=== PATIENT | male | born 1945 | race Hispanic/Latino ===

== ENCOUNTER 2016-05-17 17:43 | Inpatient (IN) | payer MEDICARE ==
[2016-05-17 23:08] VITALS: BMI 35.2
--- NOTE | 2016-05-17 23:54 | CP.PCM.HP ---
History of Present Illness - History of Present Illness History of Present Illness: PCP: Bre Long MD Neurologist: Dr Winston Chief Complaint: CVA Transferred for Acute Rehab HPI: The Hx is obtained from the Medical records reviewed. This is a 70 years old male with hx of DM II; Hepatitis C, who was admitted at the [facility] on 05/10/16 with diagnosis of Left subacute CVA and bilateral lower lobe cavitary lesions of the lung. he is transferred to the [facility] for continued management and Rehabilitation. There was hx of brain Neoplasm which was not visualized on the CT brain nor the MRI of the Brain, so his prior Decadron treatment was discontinued. For the lung cavitary mass , the patient was started on Antibiotics empirically to continue for 4 days more to 05/21/16 for possibly infectious origin, and to consider CT guided Biopsy after treatment if no resolution. PMH: Hepatitis C; DM II; Obesity; HTN?, CVA left basal ganglia; Brain tumor resolved with no significant intervention PSH: No surgical Hx SH; Quit Smoking 2 months; Drank Alcohol Heavily in the past; Live with FH; unknown Family Hx Allergies: NKDA Present on Admission - Present on Admission Any Indicators Present on Admission: No History of DVT/PE: No History of Uncontrolled Diabetes: No Urinary Catheter: No Decubitus Ulcer Present: No Review of Systems - Constitutional Constitutional: absent: Anorexia, Chills, Fatigue, Fever, Headache - EENT Eyes: absent: Diplopia, Floaters, Photophobia, Requires Corrective Lenses, Sees Flashes Ears: absent: Decreased Hearing, Ear Discharge, Ear Pain, Tinnitus Nose/Mouth/Throat: absent: Epistaxis, Nasal Congestion, Nasal Discharge, Sinus Pain, Sinus Pressure, Sore Throat - Cardiovascular Cardiovascular: absent: Chest Pain, Dyspnea, Edema, Lightheadedness, Palpitations - Respiratory Respiratory: Cough. absent: Dyspnea, Wheezing, Stridor, Chest Congestion - Gastrointestinal Gastrointestinal: absent: Abdominal Pain, Constipation, Cramping, Diarrhea, Nausea, Vomiting - Genitourinary Genitourinary: absent: Dysuria, Flank Pain, Urinary Frequency, Freq UTI - Musculoskeletal Musculoskeletal: Muscle Weakness. absent: Arthralgias, Muscle Cramps, Myalgias Additional comments: Unsteady gait. - Integumentary Integumentary: absent: Pruritus, Rash, Striae, Swelling Additional comments: stage II ulcer at right buttock - Neurological Neurological: Abnormal Gait, Focal Weakness, Memory Loss, Weakness. absent: Dizziness, Headaches - Psychiatric Psychiatric: absent: Anxiety, Confusion, Depression, Panic Attacks - Endocrine Endocrine: absent: Palpitations, Polydipsia, Polyphagia, Polyuria - Hematologic/Lymphatic Hematologic: absent: Easy Bleeding, Easy Bruising Past Patient History - Past Medical History & Family History Past Medical History?: Yes - Past Social History Smoking Status: Current Some Days Smoker Chewing Tobacco Use: No Cigar Use: No Alcohol: > 2 Drinks/Day Drugs: Denies Home Situation {Lives}: With Family - CARDIAC Hx Cardiac Disorders: No - PULMONARY Hx Respiratory Disorders: No - NEUROLOGICAL Hx Neurological Disorder: Yes (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) HX Cerebrovascular Accident: Yes - HEENT Hx HEENT Problems: No - RENAL Hx Chronic Kidney Disease: No - ENDOCRINE/METABOLIC Hx Diabetes Mellitus Type 2: Yes - HEMATOLOGICAL/ONCOLOGICAL Hx Blood Disorders: Yes Hx Hepatitis C: Yes - INTEGUMENTARY Hx Dermatological Problems: No - MUSCULOSKELETAL/RHEUMATOLOGICAL Hx Musculoskeletal Disorders: Yes Hx Falls: Yes (FREQUENT FALLING) Hx Unsteady Gait: Yes - GASTROINTESTINAL Hx Gastrointestinal Disorders: No - GENITOURINARY/GYNECOLOGICAL Hx Genitourinary Disorders: No - PSYCHIATRIC Hx Psychophysiologic Disorder: Yes (SMOKES CIGARETTES PPD,H/O DRINKING BEER DAILY) Hx Substance Use: No - SURGICAL HISTORY Hx Surgeries: No - ANESTHESIA Hx Anesthesia: No Meds Allergies/Adverse Reactions: Allergies Allergy/AdvReac Type Severity Reaction Status Date / Time No Known Allergies Allergy Verified 05/17/16 23:09 Physical Exam - Constitutional Appears: No Acute Distress - Head Exam Head Exam: ATRAUMATIC, NORMAL INSPECTION, NORMOCEPHALIC - Eye Exam Eye Exam: EOMI, Normal appearance Pupil Exam: NORMAL ACCOMODATION, PERRL - ENT Exam ENT Exam: Mucous Membranes Moist, Normal Exam, Normal External Ear Exam, Normal Oropharynx - Neck Exam Neck exam: Positive for: Full Rom, Normal Inspection. Negative for: Lymphadenopathy, Tenderness - Respiratory Exam Respiratory Exam: Rhonchi. absent: Chest Wall Tenderness Additional comments: transmitted breath sounds to both lungs. - Cardiovascular Exam Cardiovascular Exam: REGULAR RHYTHM, RRR, +S1, +S2. absent: Gallop, JVD - GI/Abdominal Exam GI & Abdominal Exam: Normal Bowel Sounds, Soft Additional comments: Obesd abdomen, Nontender, +ve bowel sounds. - Rectal Exam Rectal Exam: Deferred - Extremities Exam Extremities exam: Positive for: full ROM, normal inspection. Negative for: joint swelling, pedal edema, tenderness - Back Exam Back exam: NORMAL INSPECTION. absent: CVA tenderness (L), CVA tenderness (R) - Neurological Exam Neurological exam: Alert, CN II-XII Intact, Oriented x3, Reflexes Normal - Psychiatric Exam Psychiatric exam: Normal Affect, Normal Mood - Skin Skin Exam: Dry, Intact, Normal Color, Warm Results - EKG Data EKG comments: 05/10/16 Sinus tachycardia 103/min - Imaging and Cardiology CT scan - head 05/10/16 Status: Pending, Report reviewed by me Additional comment: Subacute vs old infarct left basal gangila extending to the left rosales radiata and left centrum semiovale. No Hemorrhage. MRI - head 05/10/16 Status: Report reviewed by me Additional comment: Left Sided Subacute infarct in basal ganglia and adjacent rosales radiata. CT Abdomen/ Pelvis 05/12/16 Status: Report reviewed by me Additional comment: Bilateral lower lobe cavitary lesions. RLL atelectasis or infiltrate. Borderline hypertrophic Prostate containing calcification. CT scan - chest 05/11/16 Status: Report reviewed by me Additional comment: Bilateral cavitary masses. Assessment & Plan - Assessment and Plan (Free Text) Assessment: #. Left sided Subacute CVA in basal ganglia #. Bibasal Cavitary masses #. HCAP #. DM II #. Hepatitis C #. Obesity Plan: 70 years old male with hx of DM II; Hepatitis C, who was admitted at the [facility] on 05/10/16 with diagnosis of Left subacute CVA and bilateral lower lobe cavitary lesions of the lung. He is transferred to the [facility] for continued management and Rehabilitation. There was hx of brain Neoplasm which was not visualized on the CT brain nor the MRI of the Brain, so his prior Decadron treatment was discontinued. For the lung cavitary mass , the patient was started on Antibiotics empirically to continue for 4 days more to 05/21/16 for possibly infectious origin, and to consider CT guided Biopsy after treatment if no resolution. #. Left sided Subacute CVA in basal ganglia - Consult Dr Lema Applique Cutter - consult Dr Winston neurologist - Lipitor/ ASA - PT/OT #. Bibasal Cavitary masses #. HCAP Consult Dr Lopes ID A&P as per ID hCarles Delarosa MD of [facility] - Bilateral small cavitary lesions in the lower lobes of both lungs, R/O septic emboli R/O endocarditis, R/O malignancy; consider healthcare-associated pneumonia (with associated bronchiectasis on the right lower lobe); also need to rule out Sarcoidosis, fungal infection - to continue Vancomycin, Cefepime and Zithromax (day 6 of 10); blood cx -ve; echo shows no vegetations; CRP is elevated consider CT-guided biopsy of the lesions after treatment as per ID of [facility] Follow up ANCA and CARLITA levels; since beta glucan levels are elevated, continue Mycamine (day 2) pending galactomannan levels; if galactomannan levels are negative, change to PO Diflucan as per ID Dr Martinez of [facility] #. DM II - Diabetic diet - Metformin 500mg BID with meals - Regular Insulin Sliding scale according to Accucheck - HbA1c 7.5 on 05/10/16 #. Hepatitis C - Follow with PCP outpatient #. Obesity - kashia on diet and exercise #. Stress ulcer Prophylaxis with Pepcid #. DVT prophylaxis with Lovenox #. Code Status : Full - Date & Time Date: 05/17/16 Time: 23:53
[2016-05-18] MEDS: Cefepime 1 GM in Sodium Chloride 0.9% 100 ML IVPB SCH ×2 (04:59→17:12)
[2016-05-18] MEDS: Azithromycin 500 MG in Sodium Chloride 0.9% 250 ML IVPB SCH (06:26)
[2016-05-18] MEDS: Insulin Regular 100 units/ml SC SCH ×4 (07:13→21:29)
[2016-05-18] MEDS: Albuterol-Ipratrop 3 mg / 0.5 (3 ml) UD INH SCH ×4 (08:01→19:43)
[2016-05-18 08:21] LABS: BASO % 0.2 % (0.0-2.0); EOS % 0.7 % (0.0-4.0); HEMATOCRIT 32.3 % (35.0-51.0); LYMPH # 0.6 K/uL (1.0-4.3); LYMPH % 13.5 % (20.0-40.0); MEAN CELL VOLUME 91.3 fl (80.0-94.0); MEAN PLATELET VOLUME 8.7 fl (7.2-11.7); MONO # 0.2 K/uL (0.0-0.8); MONO % 3.2 % (0.0-10.0); NEUT # 3.9 K/uL (1.8-7.0); NEUT % 82.4 % (50.0-75.0); NRBC % 0.2 % (0.0-0.0); RED CELL DISTRIBUTION WIDTH 13.4 % (11.5-14.5); WHITE BLOOD COUNT 4.7 K/uL (4.8-10.8)
[2016-05-18 08:27] LABS: ALB/GLOB RATIO 0.9 (1.0-2.1); ALKALINE PHOSPHATASE 85 U/L (38-126); ALT/SGPT 49 U/L (21-72); AST/SGOT 32 U/L (17-59); BILIRUBIN,TOTAL 0.6 mg/dl (0.2-1.3); BLOOD UREA NITROGEN 13 mg/dl (9-20); CALCIUM 8.1 mg/dL (8.4-10.2); CARBON DIOXIDE 36 mmol/L (22-30); CHLORIDE 97 mmol/L (98-107); GFR AFRICAN-AMERICAN > 60; GLUCOSE,RANDOM 110 mg/dL (75-110); POTASSIUM 3.4 MMOL/L (3.6-5.0); SODIUM 140 mmol/l (132-148); TOTAL PROTEIN 5.4 G/DL (6.3-8.2)
[2016-05-18] MEDS: Pantoprazole 40 mg EC Tab PO SCH (08:27)
[2016-05-18] MEDS: Enoxaparin 40 mg Syringe SC SCH (12:03)
[2016-05-18] MEDS: Micafungin 100 MG in Sodium Chloride 0.9% 100 ML IVPB SCH (12:07)
--- NOTE | 2016-05-18 15:32 | CP.PCM.CON ---
History of Present Illness - History of Present Illness History of Present Illness: Infectious Disease Consultation Note- asked to see this patient at the request of the [facility] ( was not called about this consult on the phone, happen to see the request on the [facility]). HPI- Pt. is a 70 year old male with pmh of DM II, Hep C , ? brain tumor which apparently is resolved was on decadron in the past as per hospitalist's note, who was apparently admitted to [facility] on 05/10/2016 with diagnosis of left subacute CVA and was also found to have b/l lower lobe cavitary lesions of the lung. As per med noted from [facility] pt. was being f/u by Infectious Disease doctors there ( Manjit Duarte Dr ) for the b/l ower lobe lung lesions and they thought most likely it is pneumonia and they started pt. on cefepime, vanco and zithromax and they were ruling him out for opportunistic infections such as aspergillosis as well, low suspicion of TB based on the ID noted from the other hospital as pt. never had been exposed to TB and not from endemic region and lower lobes and they had advised to continue empiric IV abx till 05/[address] guided bx of the lung lesions if no resolution after abx completion. Pt. was transferred to [facility] for PT and rehab and i'm asked to help with antibiotic management. Pt. currently in PT and in NAD. PMH: Hepatitis C; DM II; Obesity; HTN?, CVA left basal ganglia; Brain tumor resolved with no significant intervention PSH: No surgical Hx SH; Quit Smoking 2 months; Drank Alcohol Heavily in the past; Live with past h/o IVDu Allergies: NKDA Review of Systems - Review of Systems Review of Systems: ROS- denies any fever, denies any chills, denies any SANTANA, denies any nausea or vomiting, denies any sob, no cough, denies any sob, denies any chest pain, denies any abd. pain, denies any dysurea, denies any diarrhea denies any recent travel denies any exposure to TB denies any weight loss, denies any night sweats 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) HX Cerebrovascular Accident: Yes - HEENT Hx HEENT Problems: No - RENAL Hx Chronic Kidney Disease: No - ENDOCRINE/METABOLIC Hx Diabetes Mellitus Type 2: Yes - HEMATOLOGICAL/ONCOLOGICAL Hx Blood Disorders: Yes Hx Hepatitis C: Yes - INTEGUMENTARY Hx Dermatological Problems: No - MUSCULOSKELETAL/RHEUMATOLOGICAL Hx Musculoskeletal Disorders: Yes Hx Falls: Yes (FREQUENT FALLING) Hx Unsteady Gait: Yes - GASTROINTESTINAL Hx Gastrointestinal Disorders: No - GENITOURINARY/GYNECOLOGICAL Hx Genitourinary Disorders: No - PSYCHIATRIC Hx Psychophysiologic Disorder: Yes (SMOKES CIGARETTES PPD,H/O DRINKING BEER DAILY) Hx Substance Use: No - SURGICAL HISTORY Hx Surgeries: No - ANESTHESIA Hx Anesthesia: No Meds Allergies/Adverse Reactions: Allergies Allergy/AdvReac Type Severity Reaction Status Date / Time No Known Allergies Allergy Verified 05/17/16 23:09 - Medications Medications: Current Medications Albuterol/Ipratropium (Duoneb 3 Mg/0.5 Mg (3 Ml) Ud) 3 ml INH RQID [facility] Last Admin: 05/18/16 11:30 Dose: Not Given Aspirin (Ecotrin) 81 mg PO DAILY [facility] Last Admin: 05/18/16 08:27 Dose: 81 mg Atorvastatin Calcium (Lipitor) 20 mg PO [facility] Docusate Sodium (Colace) 100 mg PO BID [facility] Last Admin: 05/18/16 08:27 Dose: 100 mg Enoxaparin Sodium (Lovenox) 40 mg SC DAILY [facility] PRN Reason: Protocol Last Admin: 05/18/16 12:03 Dose: 40 mg Furosemide (Lasix) 40 mg PO DAILY [facility] Last Admin: 05/18/16 08:32 Dose: 40 mg Cefepime HCl 1 gm/ Sodium (Chloride) 100 mls @ 100 mls/hr IVPB Q12H [facility] Last Admin: 05/18/16 04:59 Dose: 100 mls/hr Azithromycin 500 mg/ Sodium (Chloride) 250 mls @ 250 mls/hr IVPB DAILY@0600 [facility] Last Admin: 05/18/16 06:26 Dose: 250 mls/hr Vancomycin HCl 1 gm/ Sodium (Chloride) 250 mls @ 166.667 mls/hr IVPB Q12H [facility] Last Admin: 05/18/16 02:17 Dose: 166.667 mls/hr Micafungin Sodium 100 mg/ (Sodium Chloride) 100 mls @ 100 mls/hr IVPB DAILY [facility] Last Admin: 05/18/16 12:07 Dose: 100 mls/hr Insulin Human Regular (Humulin R) 0 units SC ACHS [facility] PRN Reason: Protocol Last Admin: 05/18/16 12:14 Dose: Not Given Metformin HCl (Glucophage) 500 mg PO BIDWM [facility] Last Admin: 05/18/16 08:27 Dose: 500 mg Pantoprazole Sodium (Protonix Ec Tab) 40 mg PO DAILY [facility] Last Admin: 05/18/16 08:27 Dose: 40 mg Physical Exam - Constitutional Appears: Non-toxic, No Acute Distress - Head Exam Head Exam: ATRAUMATIC - Eye Exam Eye Exam: EOMI, PERRL - ENT Exam ENT Exam: Normal Oropharynx - Neck Exam Neck exam: Positive for: Full Rom - Respiratory Exam Respiratory Exam: NORMAL BREATHING PATTERN Additional comments: no wheezing slightly reduced breath sounds at the bases no rhonchi - Cardiovascular Exam Cardiovascular Exam: RRR, +S1, +S2 - GI/Abdominal Exam GI & Abdominal Exam: Normal Bowel Sounds, Soft Additional comments: NT, ND - Extremities Exam Extremities exam: Positive for: normal inspection - Neurological Exam Neurological exam: Alert, Oriented x3 Results - Vital Signs Recent Vital Signs: Last Vital Signs Temp 98.3 F 05/18/16 08:40 Pulse 95 H 05/18/16 08:40 Resp 23 05/18/16 08:40 BP 113/68 05/18/16 08:40 Pulse Ox 98 05/18/16 08:40 - Labs Result Diagrams: 05/19/16 07:27 05/19/16 07:27 Labs: Laboratory Results - last 24 hr 05/18/16 05/18/16 05/18/16 05:33 08:04 11:52 WBC 4.7 L RBC 3.54 L Hgb 11.0 L Hct 32.3 L MCV 91.3 MCH 31.0 MCHC 34.0 RDW 13.4 Plt Count 76 L MPV 8.7 Neut % (Auto) 82.4 H Lymph % (Auto) 13.5 L [place] % (Auto) 3.2 Eos % (Auto) 0.7 Baso % (Auto) 0.2 Neut # 3.9 Lymph # 0.6 L [place] # 0.2 Eos # 0.0 Baso # 0.0 PT 11.0 INR 1.06 APTT 25.0 Sodium 140 Potassium 3.4 L Chloride 97 L Carbon Dioxide 36 H Anion Gap 10 BUN 13 Creatinine 0.4 L Est GFR ( Amer) > 60 Est GFR (Non-Af Amer) > 60 POC Glucose (mg/dL) 114 H 135 H Random Glucose 110 Calcium 8.1 L Total Bilirubin 0.6 AST 32 ALT 49 Alkaline Phosphatase 85 Total Protein 5.4 L Albumin 2.6 L Globulin 2.8 Albumin/Globulin Ratio 0.9 L Laboratory Results - last 72 hr 05/18/16 05/18/16 05/18/16 05:33 08:04 11:52 WBC 4.7 L RBC 3.54 L Hgb 11.0 L Hct 32.3 L MCV 91.3 MCH 31.0 MCHC 34.0 RDW 13.4 Plt Count 76 L MPV 8.7 Neut % (Auto) 82.4 H Lymph % (Auto) 13.5 L [place] % (Auto) 3.2 Eos % (Auto) 0.7 Baso % (Auto) 0.2 Neut # 3.9 Lymph # 0.6 L [place] # 0.2 Eos # 0.0 Baso # 0.0 PT 11.0 INR 1.06 APTT 25.0 Sodium 140 Potassium 3.4 L Chloride 97 L Carbon Dioxide 36 H Anion Gap 10 BUN 13 Creatinine 0.4 L Est GFR ( Amer) > 60 Est GFR (Non-Af Amer) > 60 POC Glucose (mg/dL) 114 H 135 H Random Glucose 110 Calcium 8.1 L Total Bilirubin 0.6 AST 32 ALT 49 Alkaline Phosphatase 85 Total Protein 5.4 L Albumin 2.6 L Globulin 2.8 Albumin/Globulin Ratio 0.9 L Microbiology 05/13/16 06:30 Urine,Clean Catch Urine Culture - Final No Growth (<1,000 CFU/ML) 05/12/16 11:15 Blood-Venous Blood Culture - Final 05/12/16 11:15 Blood-Venous Gram Stain - Final NO GROWTH AFTER 5 DAYS TEST NOT PERFORMED 05/12/16 11:00 Blood-Venous Blood Culture - Final 05/12/16 11:00 Blood-Venous Gram Stain - Final NO GROWTH AFTER 5 DAYS TEST NOT PERFORMED Accession No. : [id number] Patient Name / ID : ALBA MIJARES / [id number] Exam Date : 05/10/2016 09:49:35 ( Approved ) Study Comment : Sex / Age : M / 70Y Creator : Patel Bernstein MD Dictator : Patel Bernstein MD Saddle Lining Stitcher : Human Relations Professor : Patel Bernstein MD Approver2 : Report Date : 05/10/2016 10:18:17 My Comment : PROCEDURE: CT HEAD WITHOUT CONTRAST. HISTORY: code strke COMPARISON: None available. TECHNIQUE: Axial computed tomography images were obtained through the head/brain without intravenous contrast. Radiation dose: Total exam DLP = no mGy-cm. FINDINGS: HEMORRHAGE: No intracranial hemorrhage. BRAIN: No mass effect or edema. There is ill-defined low attenuation in the left lentiform nucleus extending cephalad in the rosales radiata to the centrum semiovale and subcortical white matter. This may be subacute or old infarct. There is no evidence of acute infarct elsewhere. There is mild diffuse age- appropriate cerebral atrophy. Probable dilated perivascular space inferior to the basal ganglia. VENTRICLES: No hydrocephalus. CALVARIUM: No midline shift. PARANASAL SINUSES: Unremarkable as visualized. No significant inflammatory changes. MASTOID AIR CELLS: Unremarkable as visualized. No inflammatory changes. OTHER FINDINGS: None. IMPRESSION: Subacute versus old infarct left basal ganglia extending to the left rosales radiata and left centrum semiovale. No hemorrhage. No other significant abnormality. These findings were discussed by telephone with Dr. Roe at 10:13 a.m. on 2016.Accession No. : [id number] Patient Name / ID : ALBA MIJARES / [id number] Exam Date : 05/11/2016 15:50:08 ( Approved ) Study Comment : Sex / Age : M / 70Y Creator : Braulio Delgadillo MD Dictator : Braulio Delgadillo MD Saddle Lining Stitcher : Human Relations Professor : Braulio Delgadillo MD Approver2 : Report Date : 05/11/2016 16:42:37 My Comment : PROCEDURE: CT Chest without contrast HISTORY: sob COMPARISON: None. TECHNIQUE: Contiguous axial images were obtained through the chest without intravenous contrast enhancement. Sagittal and coronal reconstructions were performed. Maximum intensity projection (MIP) reconstructed images in the following planes : Axial projection only. Radiation dose (DLP): 884.96 mGy-cm. FINDINGS: LUNGS: Bilateral cavitary masses including 2.2 cm cavitary lesion right lower lobe adjacent to the diaphragm mid and 1.4 x 1.5 cm cavitary left mass. Focal bronchiectasis basilar segment right lower lobe. MEDIASTINUM: Unremarkable thoracic aorta. No aneurysm. Normal sized heart. Main pulmonary artery unremarkable. No vascular congestion. No lymphadenopathy. PLEURA: No pleural fluid. No pneumothorax. BONES: No fracture. No destructive lesion. UPPER ABDOMEN: Grossly unremarkable. OTHER FINDINGS: None. IMPRESSION: Bilateral cavitary masses. Most likely etiologies septic emboli, cavitary metastatic disease, inflammatory/infectious process ease and immunocompromised individuals. Focal subsegmental bronchiectasis right lower lobe.Accession No. : [id number] Patient Name / ID : ALBA MIJARES / [id number] Exam Date : 05/12/2016 13:43:51 ( Approved ) Study Comment : Sex / Age : M Y Creator : Lindsey Rahman MD Dictator : Lindsey Rahman MD Saddle Lining Stitcher : Human Relations Professor : Lindsey Rahman MD Approver2 : Report Date : 05/12/2016 14:33:33 My Comment : PROCEDURE: CT Abdomen and Pelvis with oral and IV contrast. HISTORY: r/o malignancy COMPARISON: CT chest without contrast performed 05/11/16 TECHNIQUE: Contiguous axial images of the abdomen and pelvis. Oral and IV contrast was administered. Coronal and Sagittal reformats generated and reviewed. Contrast dose: 100 mL Omnipaque 350 Radiation dose: Total exam DLP = 1575.34 mGy-cm. FINDINGS: LOWER THORAX: 2.3 x 2.4 cm left lower lobe cavitary lesion. 2.9 x 2.3 cm right lower lobe cavitary lesion adjacent to the diaphragm. Right lower lobe atelectasis or infiltrate. No visible pleural effusion or pneumothorax. Small hiatal hernia. LIVER: Unremarkable. GALLBLADDER AND BILE DUCTS: Unremarkable. PANCREAS: Unremarkable. SPLEEN: 1.5 x 1.4 cm probable splenule. Otherwise unremarkable appearance. ADRENALS: Unremarkable. KIDNEYS AND URETERS: The kidneys enhance symmetrically. No hydronephrosis or obstructing renal calculus. BLADDER: The urinary bladder appears unremarkable. REPRODUCTIVE: The prostate gland measures approximately 3.6 x 5.9 cm and contains coarse calcifications. APPENDIX: The appendix is not identified. No secondary signs of acute appendicitis. BOWEL: The stomach is nondistended. The bowel loops appear within normal limits of caliber without evidence of intestinal obstruction. PERITONEUM: No significant free fluid. No definite free air. LYMPH NODES: No bulky lymphadenopathy identified. VASCULATURE: No aortic aneurysm. BONES: Osseous demineralization. Degenerative changes. OTHER FINDINGS: None. IMPRESSION: Bilateral lower lobe cavitary lesions. Considerations include cavitary malignant neoplasm versus infection (such as tuberculosis or fungal infection). Right lower lobe atelectasis or infiltrate. Borderline enlarged prostate gland containing coarse calcifications. Recommend correlation with PSA. Assessment & Plan (1) Stroke Status: Acute (2) Pulmonary cavitary lesion Status: Acute - Assessment and Plan (Free Text) Assessment: A/P- 70 year old amle with HCV, DM II, recetn stroke and incidental finding of lower lovbe cavitary lung lesions. at [place] pt. seen by ID and was started empirically on abx to cover for HAP. Multiple small cavitary lesions in the lower lobes of both lungs, R/O septic emboli R/O endocarditis ( TTE no mention of any vegetations), R/O malignancy; unlikely TB (usually TB would have large apical cavity, would have mediastinal lymph node involvement, has no history of exposure, has no specific symptoms) Subacute left basal ganglia CVA hepatitis C DM history of brain tumor (which apparently resolved without specific treatment) Plan Patient has been started on Vancomycin and Cefepime and zithromax as per ID docs at [place] since 05/12/2016. apparently beta- glucan levels were elevated at [place] and pt. was also started on micafungin by ID doc there , day #3 galactomannan levels are pending blood cx- neg x 2 no sputum cx in med records. check sputum cx. check quantiferon Gold. TTE- no mention of any vegetations as per reprot read by ice skating coach. check repeat CT of the lung to see if there is any resolution of the lower cavitary lung lesions, if not would need pulm consult and possible Ct guided bx and to send for both fungal and afb culture as well as pathology. Thank you for allowing me to take part in the care of this patient.
[2016-05-18] MEDS ORDERED: Potassium Chloride 20 mEq ER Tab PO ONE (16:00)
--- NOTE | 2016-05-18 16:49 | CP.PCM.CON ---
History of Present Illness - History of Present Illness History of Present Illness: patient is a 70 year male with complains of weakness on the left arm and leg admitted from [facility] now for inpatient Rehab Review of Systems - Constitutional Constitutional: Weakness - Musculoskeletal Musculoskeletal: Abnormal Gait - Neurological Neurological: Abnormal Gait 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) HX Cerebrovascular Accident: Yes - HEENT Hx HEENT Problems: No - RENAL Hx Chronic Kidney Disease: No - ENDOCRINE/METABOLIC Hx Diabetes Mellitus Type 2: Yes - HEMATOLOGICAL/ONCOLOGICAL Hx Blood Disorders: Yes Hx Hepatitis C: Yes - INTEGUMENTARY Hx Dermatological Problems: No - MUSCULOSKELETAL/RHEUMATOLOGICAL Hx Musculoskeletal Disorders: Yes Hx Falls: Yes (FREQUENT FALLING) Hx Unsteady Gait: Yes - GASTROINTESTINAL Hx Gastrointestinal Disorders: No - GENITOURINARY/GYNECOLOGICAL Hx Genitourinary Disorders: No - PSYCHIATRIC Hx Psychophysiologic Disorder: Yes (SMOKES CIGARETTES PPD,H/O DRINKING BEER DAILY) Hx Substance Use: No - SURGICAL HISTORY Hx Surgeries: No - ANESTHESIA Hx Anesthesia: No Meds Allergies/Adverse Reactions: Allergies Allergy/AdvReac Type Severity Reaction Status Date / Time No Known Allergies Allergy Verified 05/17/16 23:09 - Medications Medications: Current Medications Albuterol/Ipratropium (Duoneb 3 Mg/0.5 Mg (3 Ml) Ud) 3 ml INH RQID [facility] Last Admin: 05/18/16 15:32 Dose: 3 ml Aspirin (Ecotrin) 81 mg PO DAILY [facility] Last Admin: 05/18/16 08:27 Dose: 81 mg Atorvastatin Calcium (Lipitor) 20 mg PO HS [facility] Docusate Sodium (Colace) 100 mg PO BID [facility] Last Admin: 05/18/16 08:27 Dose: 100 mg Enoxaparin Sodium (Lovenox) 40 mg SC DAILY [facility] PRN Reason: Protocol Last Admin: 05/18/16 12:03 Dose: 40 mg Furosemide (Lasix) 40 mg PO DAILY [facility] Last Admin: 05/18/16 08:32 Dose: 40 mg Cefepime HCl 1 gm/ Sodium (Chloride) 100 mls @ 100 mls/hr IVPB Q12H [facility] Last Admin: 05/18/16 04:59 Dose: 100 mls/hr Azithromycin 500 mg/ Sodium (Chloride) 250 mls @ 250 mls/hr IVPB DAILY@0600 [facility] Last Admin: 05/18/16 06:26 Dose: 250 mls/hr Vancomycin HCl 1 gm/ Sodium (Chloride) 250 mls @ 166.667 mls/hr IVPB Q12H [facility] Last Admin: 05/18/16 15:26 Dose: 166.667 mls/hr Micafungin Sodium 100 mg/ (Sodium Chloride) 100 mls @ 100 mls/hr IVPB DAILY [facility] Last Admin: 05/18/16 12:07 Dose: 100 mls/hr Insulin Human Regular (Humulin R) 0 units SC ACHS [facility] PRN Reason: Protocol Last Admin: 05/18/16 12:14 Dose: Not Given Metformin HCl (Glucophage) 500 mg PO BIDWM [facility] Last Admin: 05/18/16 08:27 Dose: 500 mg Pantoprazole Sodium (Protonix Ec Tab) 40 mg PO DAILY [facility] Last Admin: 05/18/16 08:27 Dose: 40 mg Physical Exam - Head Exam Head Exam: ATRAUMATIC, NORMAL INSPECTION, NORMOCEPHALIC - Eye Exam Eye Exam: EOMI, Normal appearance, PERRL Pupil Exam: NORMAL ACCOMODATION - ENT Exam ENT Exam: Mucous Membranes Moist, Normal Exam - Neck Exam Neck exam: Positive for: Normal Inspection - Respiratory Exam Respiratory Exam: NORMAL BREATHING PATTERN - Cardiovascular Exam Cardiovascular Exam: REGULAR RHYTHM - GI/Abdominal Exam GI & Abdominal Exam: Normal Bowel Sounds - Rectal Exam Rectal Exam: NORMAL INSPECTION - Neurological Exam Neurological exam: Alert, CN II-XII Intact - Expanded Neurological Exam Expanded Patient oriented to: person, place, time Cerebellar Function: Finger to Nose: Abnormal Left, Heel to [place]: Abnormal Left Neuro motor strength exam: Left Upper Extremity: 3, Right Upper Extremity: 4, Left Lower Extremity: 3, Right Lower Extremity: 4 DTR: Achilles Tendon Left: 2+, Achilles Tendon Right: 2+ - Psychiatric Exam Psychiatric exam: Normal Affect, Normal Mood - Skin Skin Exam: Normal Color Additional comments: araujo stage 2 to the buttock Results - Vital Signs Recent Vital Signs: Last Vital Signs Temp 98.4 F 05/18/16 15:38 Pulse 114 H 05/18/16 15:58 Resp 20 05/18/16 15:38 BP 109/68 05/18/16 15:38 Pulse Ox 96 05/18/16 15:58 - Labs Result Diagrams: 05/18/16 08:04 05/18/16 08:04 Labs: Laboratory Results - last 24 hr 05/18/16 05/18/16 05/18/16 05:33 08:04 11:52 WBC 4.7 L RBC 3.54 L Hgb 11.0 L Hct 32.3 L MCV 91.3 MCH 31.0 MCHC 34.0 RDW 13.4 Plt Count 76 L MPV 8.7 Neut % (Auto) 82.4 H Lymph % (Auto) 13.5 L [place] % (Auto) 3.2 Eos % (Auto) 0.7 Baso % (Auto) 0.2 Neut # 3.9 Lymph # 0.6 L [place] # 0.2 Eos # 0.0 Baso # 0.0 PT 11.0 INR 1.06 APTT 25.0 Sodium 140 Potassium 3.4 L Chloride 97 L Carbon Dioxide 36 H Anion Gap 10 BUN 13 Creatinine 0.4 L Est GFR ( Amer) > 60 Est GFR (Non-Af Amer) > 60 POC Glucose (mg/dL) 114 H 135 H Random Glucose 110 Calcium 8.1 L Total Bilirubin 0.6 AST 32 ALT 49 Alkaline Phosphatase 85 Total Protein 5.4 L Albumin 2.6 L Globulin 2.8 Albumin/Globulin Ratio 0.9 L Vancomycin Trough 05/18/16 05/18/16 14:15 15:48 WBC RBC Hgb Hct MCV MCH MCHC RDW Plt Count MPV Neut % (Auto) Lymph % (Auto) [place] % (Auto) Eos % (Auto) Baso % (Auto) Neut # Lymph # [place] # Eos # Baso # PT INR APTT Sodium Potassium Chloride Carbon Dioxide Anion Gap BUN Creatinine Est GFR ( Amer) Est GFR (Non-Af Amer) POC Glucose (mg/dL) 104 Random Glucose Calcium Total Bilirubin AST ALT Alkaline Phosphatase Total Protein Albumin Globulin Albumin/Globulin Ratio Vancomycin Trough 6.0 Assessment & Plan (1) Pulmonary cavitary lesion Status: Acute (2) Stroke Status: Acute (3) Hepatitis C Status: Acute - Assessment and Plan (Free Text) Assessment: DM PLan for Physical, occupational, speech , recreational therapy for rom , strenthening, transfers, gait training. Monitor stage 2 on the buttock Monitor DM Monitor BP on antibiotics and with picc line
--- NOTE | 2016-05-18 17:20 | PN ---
DATE: 05/18/2016 The patient is a 70-year-old male admitted for acute inpatient rehab program. The patient with a brett gnosis of acute CVA with left-sided weakness, status post slurred speech. The patient also with hist ory of hepatitis, diabetes, and obesity as well. The patient is also on PICC line with IV antibiotic s, along with stage II sacral decubitus. ESTIMATED LENGTH OF STAY: Is 2-3 weeks. REHABILITATION: Impairment of decreased strength, mobility, transfers, and gait, and speech. REHAB PROGNOSIS: Fair. INTERVENTIONS: Physical therapy, occupational therapy, recreational therapy, speech therapy. THERAPY GOALS: The patient to be independent. In bed mobility, independence with supervision, funct ional with positional changes, independence with supervision for simple transfers, supervision to con tact guard for complex transfers, independence with supervision for ambulation with assistive devices , supervision and contact guard for elevations. No acute barriers noted for discharge. DISCHARGE DISPOSITION: To be discharged home with supportive services. History and physical are written for the patient. The patient's MRI showed left-sided subacute infar ction in the basal ganglia and the rosales radiata. Jorge Luis Goodrich MD cc: [phone] TT: 05/18/2016 17:20:26 Confirmation # [id number] Dictation # [id number] tessa
[2016-05-19] MEDS: Cefepime 1 GM in Sodium Chloride 0.9% 100 ML IVPB SCH ×2 (05:17→16:56)
[2016-05-19] MEDS: Azithromycin 500 MG in Sodium Chloride 0.9% 250 ML IVPB SCH (06:45)
[2016-05-19] MEDS: Insulin Regular 100 units/ml SC SCH ×4 (07:11→21:44)
[2016-05-19 07:47] LABS: BASO % 0.2 % (0.0-2.0); HEMATOCRIT 31.2 % (35.0-51.0); LYMPH # 0.7 K/uL (1.0-4.3); LYMPH % 15.7 % (20.0-40.0); MEAN CELL VOLUME 90.7 fl (80.0-94.0); MEAN CORPUSCULAR HEMOGLOBIN 30.7 pg (27.0-31.0); MEAN CORPUSCULAR HGB CONC 33.9 g/dL (33.0-37.0); MEAN PLATELET VOLUME 8.4 fl (7.2-11.7); MONO # 0.1 K/uL (0.0-0.8); MONO % 3.2 % (0.0-10.0); NEUT # 3.3 K/uL (1.8-7.0); NEUT % 79.9 % (50.0-75.0); NRBC % 0.3 % (0.0-0.0); RED CELL DISTRIBUTION WIDTH 13.2 % (11.5-14.5); WHITE BLOOD COUNT 4.2 K/uL (4.8-10.8)
[2016-05-19] MEDS: Albuterol-Ipratrop 3 mg / 0.5 (3 ml) UD INH SCH ×4 (07:48→19:37)
[2016-05-19 08:06] LABS: BLOOD UREA NITROGEN 13 mg/dl (9-20); CALCIUM 8.1 mg/dL (8.4-10.2); CARBON DIOXIDE 37 mmol/L (22-30); CHLORIDE 98 mmol/L (98-107); GFR AFRICAN-AMERICAN > 60; GLUCOSE,RANDOM 128 mg/dL (75-110); POTASSIUM 3.4 MMOL/L (3.6-5.0); SODIUM 138 mmol/l (132-148)
[2016-05-19] MEDS: Enoxaparin 40 mg Syringe SC SCH (08:28)
[2016-05-19] MEDS: Pantoprazole 40 mg EC Tab PO SCH (08:29)
[2016-05-19] MEDS: Micafungin 100 MG in Sodium Chloride 0.9% 100 ML IVPB SCH (08:29)
[2016-05-19] MEDS ORDERED: Potassium Chloride 20 mEq ER Tab PO ONE (09:54)
--- NOTE | 2016-05-19 12:05 | CP.PCM.PN ---
Subjective - Date & Time of Evaluation Date of Evaluation: 05/19/16 Time of Evaluation: 12:00 - Subjective Subjective: no acute complaints at present, feels better even without oxygen Objective - Vital Signs/Intake and Output Vital Signs (last 24 hours): Temp Pulse Resp BP Pulse Ox 98.6 F 92 H 20 102/64 97 05/19/16 09:53 05/19/16 09:53 05/19/16 09:53 05/19/16 09:53 05/19/16 09:53 - Medications Medications: Current Medications Albuterol/Ipratropium (Duoneb 3 Mg/0.5 Mg (3 Ml) Ud) 3 ml INH RQID [facility] Last Admin: 05/19/16 07:48 Dose: 3 ml Aspirin (Ecotrin) 81 mg PO DAILY [facility] Last Admin: 05/19/16 08:28 Dose: 81 mg Atorvastatin Calcium (Lipitor) 20 mg PO HS [facility] Last Admin: 05/18/16 21:34 Dose: 20 mg Docusate Sodium (Colace) 100 mg PO BID [facility] Last Admin: 05/19/16 08:28 Dose: 100 mg Enoxaparin Sodium (Lovenox) 40 mg SC DAILY [facility] PRN Reason: Protocol Last Admin: 05/19/16 08:28 Dose: 40 mg Furosemide (Lasix) 40 mg PO DAILY [facility] Last Admin: 05/19/16 08:28 Dose: 40 mg Cefepime HCl 1 gm/ Sodium (Chloride) 100 mls @ 100 mls/hr IVPB Q12H [facility] Last Admin: 05/19/16 05:17 Dose: 100 mls/hr Azithromycin 500 mg/ Sodium (Chloride) 250 mls @ 250 mls/hr IVPB DAILY@0600 [facility] Last Admin: 05/19/16 06:45 Dose: 250 mls/hr Vancomycin HCl 1 gm/ Sodium (Chloride) 250 mls @ 166.667 mls/hr IVPB Q12H [facility] Last Admin: 05/19/16 02:01 Dose: 166.667 mls/hr Micafungin Sodium 100 mg/ (Sodium Chloride) 100 mls @ 100 mls/hr IVPB DAILY [facility] Last Admin: 05/19/16 08:29 Dose: 100 mls/hr Insulin Human Regular (Humulin R) 0 units SC ACHS [facility] PRN Reason: Protocol Last Admin: 05/19/16 11:43 Dose: Not Given Metformin HCl (Glucophage) 500 mg PO BIDWM [facility] Last Admin: 05/19/16 08:28 Dose: 500 mg Pantoprazole Sodium (Protonix Ec Tab) 40 mg PO DAILY [facility] Last Admin: 05/19/16 08:29 Dose: 40 mg - Labs Labs: 05/19/16 07:27 05/19/16 07:27 PT 11.0 SECONDS (9.6-11.2) 05/18/16 08:04 INR 1.06 (0.92-1.08) 05/18/16 08:04 APTT 25.0 SECONDS (23.3-32.5) 05/18/16 08:04 - Head Exam Head Exam: ATRAUMATIC, NORMAL INSPECTION, NORMOCEPHALIC - Eye Exam Eye Exam: EOMI, Normal appearance, PERRL Pupil Exam: NORMAL ACCOMODATION - ENT Exam ENT Exam: Mucous Membranes Moist, Normal Exam - Respiratory Exam Respiratory Exam: NORMAL BREATHING PATTERN - Cardiovascular Exam Cardiovascular Exam: REGULAR RHYTHM - GI/Abdominal Exam GI & Abdominal Exam: Normal Bowel Sounds - Rectal Exam Rectal Exam: NORMAL INSPECTION - Exam Exam: NORMAL INSPECTION - Extremities Exam Extremities Exam: Normal Capillary Refill - Back Exam Back Exam: NORMAL INSPECTION - Neurological Exam Neurological Exam: Alert, Awake Neuro motor strength exam: Left Upper Extremity: 3, Right Upper Extremity: 4, Left Lower Extremity: 3, Right Lower Extremity: 4 - Psychiatric Exam Psychiatric exam: Normal Affect, Normal Mood - Skin Skin Exam: Dry Assessment and Plan (1) Pulmonary cavitary lesion Status: Acute (2) Stroke Assessment & Plan: plan for occupational, physcial and recreational therapy off oxygen doing fine monitor skin of patient Status: Acute (3) Hepatitis C Status: Acute
--- NOTE | 2016-05-19 15:02 | CP.PCM.PN ---
Subjective - Date & Time of Evaluation Date of Evaluation: 05/19/16 Time of Evaluation: 10:40 - Subjective Subjective: Pt seen and examined. Denied any complaint. Objective - Vital Signs/Intake and Output Vital Signs (last 24 hours): Temp Pulse Resp BP Pulse Ox 98.6 F 92 H 20 102/64 97 05/19/16 09:53 05/19/16 09:53 05/19/16 09:53 05/19/16 09:53 05/19/16 09:53 - Medications Medications: Current Medications Albuterol/Ipratropium (Duoneb 3 Mg/0.5 Mg (3 Ml) Ud) 3 ml INH RQID [facility] Last Admin: 05/19/16 12:00 Dose: Not Given Aspirin (Ecotrin) 81 mg PO DAILY [facility] Last Admin: 05/19/16 08:28 Dose: 81 mg Atorvastatin Calcium (Lipitor) 20 mg PO HS [facility] Last Admin: 05/18/16 21:34 Dose: 20 mg Docusate Sodium (Colace) 100 mg PO BID [facility] Last Admin: 05/19/16 08:28 Dose: 100 mg Enoxaparin Sodium (Lovenox) 40 mg SC DAILY [facility] PRN Reason: Protocol Last Admin: 05/19/16 08:28 Dose: 40 mg Furosemide (Lasix) 40 mg PO DAILY [facility] Last Admin: 05/19/16 08:28 Dose: 40 mg Cefepime HCl 1 gm/ Sodium (Chloride) 100 mls @ 100 mls/hr IVPB Q12H [facility] Last Admin: 05/19/16 05:17 Dose: 100 mls/hr Azithromycin 500 mg/ Sodium (Chloride) 250 mls @ 250 mls/hr IVPB DAILY@0600 [facility] Last Admin: 05/19/16 06:45 Dose: 250 mls/hr Vancomycin HCl 1 gm/ Sodium (Chloride) 250 mls @ 166.667 mls/hr IVPB Q12H [facility] Last Admin: 05/19/16 14:20 Dose: 166.667 mls/hr Micafungin Sodium 100 mg/ (Sodium Chloride) 100 mls @ 100 mls/hr IVPB DAILY [facility] Last Admin: 05/19/16 08:29 Dose: 100 mls/hr Insulin Human Regular (Humulin R) 0 units SC ACHS [facility] PRN Reason: Protocol Last Admin: 05/19/16 11:43 Dose: Not Given Metformin HCl (Glucophage) 500 mg PO BIDWM [facility] Last Admin: 05/19/16 08:28 Dose: 500 mg Pantoprazole Sodium (Protonix Ec Tab) 40 mg PO DAILY [facility] Last Admin: 05/19/16 08:29 Dose: 40 mg - Labs Labs: 05/19/16 07:27 05/19/16 07:27 PT 11.0 SECONDS (9.6-11.2) 05/18/16 08:04 INR 1.06 (0.92-1.08) 05/18/16 08:04 APTT 25.0 SECONDS (23.3-32.5) 05/18/16 08:04 - Constitutional Appears: No Acute Distress - Head Exam Head Exam: ATRAUMATIC - Eye Exam Eye Exam: Normal appearance - ENT Exam ENT Exam: Mucous Membranes Moist - Neck Exam Neck Exam: absent: Meningismus - Respiratory Exam Respiratory Exam: absent: Rhonchi, Wheezes, Respiratory Distress - Cardiovascular Exam Cardiovascular Exam: REGULAR RHYTHM, +S1, +S2 - GI/Abdominal Exam GI & Abdominal Exam: Soft. absent: Tenderness - Rectal Exam Rectal Exam: Deferred - Neurological Exam Neurological Exam: Alert, Oriented x3 - Psychiatric Exam Psychiatric exam: Normal Affect - Skin Skin Exam: Dry, Intact Assessment and Plan - Assessment and Plan (Free Text) Assessment: 70 yo male with history of DM2 and Hep C admitted at [facility] because of subacute CVA and bilateral lower lobe cavitary lesions. He was transferred to Acute Rehab for PT/OT. 1. Left sided Subacute CVA physiatry consult with Dr Lema continue Lipitor and ASA doing well with PT/OT 2. Bibasal Cavitary Lesions to consider healthcare-associated pneumonia (with associated bronchiectasis) also need to rule out Sarcoidosis, fungal infection, lung abscess ID consult with Dr Lopes continue Vancomycin, Cefepime and Zithromax and Micafungin echo shows no vegetations; CRP is elevated to consider CT-guided biopsy of the lesions after treatment as per ID at [facility] 3. DM II BS controlled Metformin 500mg BID 4. Hepatitis C Follow up with PCP as outpatient 5. DVT prophylaxis Lovenox 40mg SC daily
[2016-05-19] MEDS ORDERED: Sodium Chloride 3% for Inhalation 4 ML VIAL.NEB IH PRN (23:33)
[2016-05-20] MEDS: Cefepime 1 GM in Sodium Chloride 0.9% 100 ML IVPB SCH ×2 (04:30→17:23)
[2016-05-20] MEDS: Azithromycin 500 MG in Sodium Chloride 0.9% 250 ML IVPB SCH (05:49)
[2016-05-20] MEDS: Insulin Regular 100 units/ml SC SCH ×4 (07:12→22:00)
[2016-05-20 07:28] LABS: BLOOD UREA NITROGEN 13 mg/dl (9-20); CALCIUM 7.7 mg/dL (8.4-10.2); CARBON DIOXIDE 37 mmol/L (22-30); CHLORIDE 98 mmol/L (98-107); GFR AFRICAN-AMERICAN > 60; GLUCOSE,RANDOM 109 mg/dL (75-110); SODIUM 138 mmol/l (132-148)
[2016-05-20] MEDS: Micafungin 100 MG in Sodium Chloride 0.9% 100 ML IVPB SCH (08:38)
[2016-05-20] MEDS: Pantoprazole 40 mg EC Tab PO SCH (08:39)
[2016-05-20] MEDS: Enoxaparin 40 mg Syringe SC SCH (08:39)
[2016-05-20] MEDS: Albuterol-Ipratrop 3 mg / 0.5 (3 ml) UD INH SCH ×3 (10:59→20:13)
[2016-05-20] MEDS: Potassium Chloride 20 mEq ER Tab PO SCH ×2 (11:14→17:24)
--- NOTE | 2016-05-20 13:42 | CP.PCM.PN ---
Subjective - Date & Time of Evaluation Date of Evaluation: 05/20/16 Time of Evaluation: 13:00 - Subjective Subjective: ID note- pt. seen and examined today. Pt. resting comfortably in bed. He denies any complaints. denies any fever or chills. asper nurse sputum cx sample was contaminated with oral fluid and as per micro needs to be resubmitted but pt. is not coughing as per nurse. Objective - Vital Signs/Intake and Output Vital Signs (last 24 hours): Temp Pulse Resp BP Pulse Ox 97.2 F L 79 18 119/64 99 05/20/16 07:18 05/20/16 07:18 05/20/16 07:18 05/20/16 08:39 05/20/16 07:18 - Medications Medications: Current Medications Albuterol/Ipratropium (Duoneb 3 Mg/0.5 Mg (3 Ml) Ud) 3 ml INH RQID [facility] Last Admin: 05/20/16 10:59 Dose: 3 ml Aspirin (Ecotrin) 81 mg PO DAILY [facility] Last Admin: 05/20/16 08:39 Dose: 81 mg Atorvastatin Calcium (Lipitor) 20 mg PO HS [facility] Last Admin: 05/19/16 21:36 Dose: 20 mg Docusate Sodium (Colace) 100 mg PO BID [facility] Last Admin: 05/20/16 08:39 Dose: 100 mg Enoxaparin Sodium (Lovenox) 40 mg SC DAILY [facility] PRN Reason: Protocol Last Admin: 05/20/16 08:39 Dose: 40 mg Cefepime HCl 1 gm/ Sodium (Chloride) 100 mls @ 100 mls/hr IVPB Q12H [facility] Last Admin: 05/20/16 04:30 Dose: 100 mls/hr Azithromycin 500 mg/ Sodium (Chloride) 250 mls @ 250 mls/hr IVPB DAILY@0600 [facility] Last Admin: 05/20/16 05:49 Dose: 250 mls/hr Vancomycin HCl 1 gm/ Sodium (Chloride) 250 mls @ 166.667 mls/hr IVPB Q12H [facility] Last Admin: 05/20/16 02:08 Dose: 166.667 mls/hr Micafungin Sodium 100 mg/ (Sodium Chloride) 100 mls @ 100 mls/hr IVPB DAILY [facility] Last Admin: 05/20/16 08:38 Dose: 100 mls/hr Insulin Human Regular (Humulin R) 0 units SC ACHS [facility] PRN Reason: Protocol Last Admin: 05/20/16 11:12 Dose: Not Given Lactobacillus Acidophilus (Bacid Acidophilus) 1 cap PO BID [facility] Metformin HCl (Glucophage) 500 mg PO BIDWM [facility] Last Admin: 05/20/16 08:39 Dose: 500 mg Pantoprazole Sodium (Protonix Ec Tab) 40 mg PO DAILY [facility] Last Admin: 05/20/16 08:39 Dose: 40 mg Potassium Chloride (K-Dur 20 Meq Er Tab) 20 meq PO BID [facility] Last Admin: 05/20/16 11:14 Dose: 20 meq - Labs Labs: - Additional Findings Additional findings: - Constitutional Appears: Non-toxic, No Acute Distress - Head Exam Head Exam: ATRAUMATIC - Eye Exam Eye Exam: EOMI, PERRL - ENT Exam ENT Exam: Normal Oropharynx - Neck Exam Neck exam: Positive for: Full Rom - Respiratory Exam Respiratory Exam: NORMAL BREATHING PATTERN Additional comments: no wheezing good aeration - Cardiovascular Exam Cardiovascular Exam: RRR, +S1, +S2 - GI/Abdominal Exam GI & Abdominal Exam: Normal Bowel Sounds, Soft Additional comments: NT, ND - Extremities Exam Extremities exam: Positive for: normal inspection - Neurological Exam Neurological exam: Alert, Oriented x 3 Laboratory Results - last 72 hr 05/18/16 05/18/16 05/18/16 05:33 08:04 11:52 WBC 4.7 L RBC 3.54 L Hgb 11.0 L Hct 32.3 L MCV 91.3 MCH 31.0 MCHC 34.0 RDW 13.4 Plt Count 76 L MPV 8.7 Neut % (Auto) 82.4 H Lymph % (Auto) 13.5 L [place] % (Auto) 3.2 Eos % (Auto) 0.7 Baso % (Auto) 0.2 Neut # 3.9 Lymph # 0.6 L [place] # 0.2 Eos # 0.0 Baso # 0.0 PT 11.0 INR 1.06 APTT 25.0 Sodium 140 Potassium 3.4 L Chloride 97 L Carbon Dioxide 36 H Anion Gap 10 BUN 13 Creatinine 0.4 L Est GFR ( Amer) > 60 Est GFR (Non-Af Amer) > 60 POC Glucose (mg/dL) 114 H 135 H Random Glucose 110 Calcium 8.1 L Total Bilirubin 0.6 AST 32 ALT 49 Alkaline Phosphatase 85 Total Protein 5.4 L Albumin 2.6 L Globulin 2.8 Albumin/Globulin Ratio 0.9 L Vancomycin Trough 05/18/16 05/18/16 05/18/16 14:15 15:48 20:44 WBC RBC Hgb Hct MCV MCH MCHC RDW Plt Count MPV Neut % (Auto) Lymph % (Auto) [place] % (Auto) Eos % (Auto) Baso % (Auto) Neut # Lymph # [place] # Eos # Baso # PT INR APTT Sodium Potassium Chloride Carbon Dioxide Anion Gap BUN Creatinine Est GFR ( Amer) Est GFR (Non-Af Amer) POC Glucose (mg/dL) 104 133 H Random Glucose Calcium Total Bilirubin AST ALT Alkaline Phosphatase Total Protein Albumin Globulin Albumin/Globulin Ratio Vancomycin Trough 6.0 05/19/16 05/19/16 05/19/16 05:58 07:27 11:22 WBC 4.2 L RBC 3.43 L Hgb 10.6 L Hct 31.2 L MCV 90.7 MCH 30.7 MCHC 33.9 RDW 13.2 Plt Count 76 L MPV 8.4 Neut % (Auto) 79.9 H Lymph % (Auto) 15.7 L [place] % (Auto) 3.2 Eos % (Auto) 1.0 Baso % (Auto) 0.2 Neut # 3.3 Lymph # 0.7 L [place] # 0.1 Eos # 0.0 Baso # 0.0 PT INR APTT Sodium 138 Potassium 3.4 L Chloride 98 Carbon Dioxide 37 H Anion Gap 6 L BUN 13 Creatinine 0.4 L Est GFR ( Amer) > 60 Est GFR (Non-Af Amer) > 60 POC Glucose (mg/dL) 130 H 115 H Random Glucose 128 H Calcium 8.1 L Total Bilirubin AST ALT Alkaline Phosphatase Total Protein Albumin Globulin Albumin/Globulin Ratio Vancomycin Trough 05/19/16 05/19/16 05/19/16 14:00 15:56 20:52 WBC RBC Hgb Hct MCV MCH MCHC RDW Plt Count MPV Neut % (Auto) Lymph % (Auto) [place] % (Auto) Eos % (Auto) Baso % (Auto) Neut # Lymph # [place] # Eos # Baso # PT INR APTT Sodium Potassium Chloride Carbon Dioxide Anion Gap BUN Creatinine Est GFR ( Amer) Est GFR (Non-Af Amer) POC Glucose (mg/dL) 103 131 H Random Glucose Calcium Total Bilirubin AST ALT Alkaline Phosphatase Total Protein Albumin Globulin Albumin/Globulin Ratio Vancomycin Trough 8.2 05/20/16 05/20/16 06:00 06:05 WBC RBC Hgb Hct MCV MCH MCHC RDW Plt Count MPV Neut % (Auto) Lymph % (Auto) [place] % (Auto) Eos % (Auto) Baso % (Auto) Neut # Lymph # [place] # Eos # Baso # PT INR APTT Sodium 138 Potassium 3.0 L Chloride 98 Carbon Dioxide 37 H Anion Gap 6 L BUN 13 Creatinine 0.5 L Est GFR ( Amer) > 60 Est GFR (Non-Af Amer) > 60 POC Glucose (mg/dL) 113 H Random Glucose 109 Calcium 7.7 L Total Bilirubin AST ALT Alkaline Phosphatase Total Protein Albumin Globulin Albumin/Globulin Ratio Vancomycin Trough Microbiology 05/19/16 18:13 Sputum Gram Stain - Final 05/19/16 18:13 Sputum Sputum Culture - Final Assessment and Plan (1) Stroke Status: Acute (2) Pulmonary cavitary lesion Status: Acute - Assessment and Plan (Free Text) Assessment: A/P- 70 year old amle with HCV, DM II, recetn stroke and incidental finding of lower lovbe cavitary lung lesions. at [facility] pt. seen by ID and was started empirically on abx to cover for HAP. Multiple small cavitary lesions in the lower lobes of both lungs, R/O septic emboli R/O endocarditis ( TTE no mention of any vegetations), R/O malignancy; unlikely TB (usually TB would have large apical cavity, would have mediastinal lymph node involvement, has no history of exposure, has no specific symptoms) Subacute left basal ganglia CVA hepatitis C DM history of brain tumor (which apparently resolved without specific treatment) remains afebrile mild leukopenia. slight thrombocytopenia could be secondary to his hep C. Plan Patient has been started on Vancomycin and Cefepime and zithromax as per ID docs at [facility] since 05/12/2016. apparently beta- glucan levels were elevated at [facility] and pt. was also started on micafungin by ID doc there , day #5, galactomannan levels are pending blood cx- neg x 2 check sputum cx. check quantiferon Gold. TTE- no mention of any vegetations as per reprot read by pantograph setter. check repeat CT of the lung to see if there is any resolution of the lower cavitary lung lesions, if not would need pulm consult and possible Ct guided bx and to send for both fungal and afb culture as well as pathology. advise to get pulmonary consultation. All above d/w Hospitalist.
[2016-05-20] MEDS ORDERED: Sodium Chloride 3% for Inhalation 4 ML VIAL.NEB IH PRN (16:00)
[2016-05-20] MEDS: Lactobacillus Acidophilus 500 MU Cap PO SCH (17:23)
[2016-05-21] MEDS: Cefepime 1 GM in Sodium Chloride 0.9% 100 ML IVPB SCH ×2 (04:04→16:43)
[2016-05-21] MEDS: Azithromycin 500 MG in Sodium Chloride 0.9% 250 ML IVPB SCH (05:41)
[2016-05-21] MEDS: Insulin Regular 100 units/ml SC SCH ×4 (07:04→22:00)
[2016-05-21] MEDS: Albuterol-Ipratrop 3 mg / 0.5 (3 ml) UD INH SCH ×4 (07:36→20:17)
[2016-05-21 08:23] LABS: BLOOD UREA NITROGEN 10 mg/dl (9-20); CALCIUM 7.6 mg/dL (8.4-10.2); CARBON DIOXIDE 39 mmol/L (22-30); CHLORIDE 97 mmol/L (98-107); GFR AFRICAN-AMERICAN > 60; GLUCOSE,RANDOM 97 mg/dL (75-110); POTASSIUM 3.1 MMOL/L (3.6-5.0); SODIUM 137 mmol/l (132-148)
[2016-05-21] MEDS: Potassium Chloride 20 mEq ER Tab PO SCH ×2 (08:25→08:53)
[2016-05-21] MEDS: Lactobacillus Acidophilus 500 MU Cap PO SCH ×2 (08:25→16:43)
[2016-05-21] MEDS: Enoxaparin 40 mg Syringe SC SCH (08:25)
[2016-05-21] MEDS: Micafungin 100 MG in Sodium Chloride 0.9% 100 ML IVPB SCH (08:26)
[2016-05-21] MEDS: Pantoprazole 40 mg EC Tab PO SCH (08:26)
--- NOTE | 2016-05-21 12:08 | CP.PCM.CON ---
History of Present Illness - History of Present Illness History of Present Illness: 70 y/o male was seen and evaluated at bedside after request for podiatry consultation. Patient was resting comfortably, in NAD. He states that he has long toenails that have been bothering him for the last few days. He states that the elongated toenails have been catching socks and bedsheets, and states that he would like to have them cut today. He denies any other pedal complaints at this time. 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) HX Cerebrovascular Accident: Yes - HEENT Hx HEENT Problems: No - RENAL Hx Chronic Kidney Disease: No - ENDOCRINE/METABOLIC Hx Diabetes Mellitus Type 2: Yes - HEMATOLOGICAL/ONCOLOGICAL Hx Blood Disorders: Yes Hx Hepatitis C: Yes - INTEGUMENTARY Hx Dermatological Problems: No - MUSCULOSKELETAL/RHEUMATOLOGICAL Hx Musculoskeletal Disorders: Yes Hx Falls: Yes (FREQUENT FALLING) Hx Unsteady Gait: Yes - GASTROINTESTINAL Hx Gastrointestinal Disorders: No - GENITOURINARY/GYNECOLOGICAL Hx Genitourinary Disorders: No - PSYCHIATRIC Hx Psychophysiologic Disorder: Yes (SMOKES CIGARETTES PPD,H/O DRINKING BEER DAILY) Hx Substance Use: No - SURGICAL HISTORY Hx Surgeries: No - ANESTHESIA Hx Anesthesia: No Meds Allergies/Adverse Reactions: Allergies Allergy/AdvReac Type Severity Reaction Status Date / Time No Known Allergies Allergy Verified 05/17/16 23:09 - Medications Medications: Current Medications Albuterol/Ipratropium (Duoneb 3 Mg/0.5 Mg (3 Ml) Ud) 3 ml INH RQID [facility] Last Admin: 05/21/16 11:07 Dose: 3 ml Aspirin (Ecotrin) 81 mg PO DAILY [facility] Last Admin: 05/21/16 08:25 Dose: 81 mg Atorvastatin Calcium (Lipitor) 20 mg PO HS [facility] Last Admin: 05/20/16 21:23 Dose: 20 mg Docusate Sodium (Colace) 100 mg PO BID [facility] Last Admin: 05/21/16 08:25 Dose: 100 mg Cefepime HCl 1 gm/ Sodium (Chloride) 100 mls @ 100 mls/hr IVPB Q12H [facility] Last Admin: 05/21/16 04:04 Dose: 100 mls/hr Azithromycin 500 mg/ Sodium (Chloride) 250 mls @ 250 mls/hr IVPB DAILY@0600 [facility] Last Admin: 05/21/16 05:41 Dose: 250 mls/hr Vancomycin HCl 1 gm/ Sodium (Chloride) 250 mls @ 166.667 mls/hr IVPB Q12H [facility] Last Admin: 05/21/16 01:07 Dose: 166.667 mls/hr Micafungin Sodium 100 mg/ (Sodium Chloride) 100 mls @ 100 mls/hr IVPB DAILY [facility] Last Admin: 05/21/16 08:26 Dose: 100 mls/hr Insulin Human Regular (Humulin R) 0 units SC ACHS [facility] PRN Reason: Protocol Last Admin: 05/21/16 11:11 Dose: Not Given Lactobacillus Acidophilus (Bacid Acidophilus) 1 cap PO BID [facility] Last Admin: 05/21/16 08:25 Dose: 1 cap Metformin HCl (Glucophage) 500 mg PO BIDWM [facility] Last Admin: 05/21/16 08:25 Dose: 500 mg Pantoprazole Sodium (Protonix Ec Tab) 40 mg PO DAILY [facility] Last Admin: 05/21/16 08:26 Dose: 40 mg Potassium Chloride (K-Dur 20 Meq Er Tab) 20 meq PO BID [facility] Last Admin: 05/21/16 08:53 Dose: Not Given Physical Exam - Constitutional Appears: Well, Non-toxic, No Acute Distress - Extremities Exam Additional comments: Bilateral foot examination: Vascular: pedal pulses palpable; capillary fill time < 3 sec to all digits; normal temperature gradient present Neuro: light touch, motor and protective sensation all grossly intact bilaterally Derm: no open lesions, no wounds, no erythema, no edema; no interdigital macration; no clinical signs of infection present; toenails are elongated and slightly thickened x 10 Ortho: restricted ankle ROM noted with no evidence of crepitus - Neurological Exam Neurological exam: Alert, Oriented x3 - Psychiatric Exam Psychiatric exam: Normal Affect, Normal Mood Results - Vital Signs Recent Vital Signs: Last Vital Signs Temp 97.7 F 05/21/16 07:43 Pulse 78 05/21/16 07:43 Resp 18 05/21/16 07:43 BP 109/69 05/21/16 07:43 Pulse Ox 99 05/21/16 07:43 - Labs Result Diagrams: 05/19/16 07:27 05/21/16 05:30 Labs: Laboratory Results - last 24 hr 05/20/16 05/20/16 05/20/16 11:04 15:29 21:27 Sodium Potassium Chloride Carbon Dioxide Anion Gap BUN Creatinine Est GFR ( Amer) Est GFR (Non-Af Amer) POC Glucose (mg/dL) 83 111 H 92 Random Glucose Calcium 05/21/16 05/21/16 05:30 05:38 Sodium 137 Potassium 3.1 L Chloride 97 L Carbon Dioxide 39 H Anion Gap 4 L BUN 10 Creatinine 0.4 L Est GFR ( Amer) > 60 Est GFR (Non-Af Amer) > 60 POC Glucose (mg/dL) 95 Random Glucose 97 Calcium 7.6 L Assessment & Plan - Assessment and Plan (Free Text) Assessment: 70 y/o male with bilateral elongated toenails Plan: Patient seen and evaluated at bedside Performed aseptic debridement of elongated toenails with small sterile nippers x10 Patient tolerated the procedure well and with no complications Patient is currently stable from podiatric perspective Discussed patient with attending, Dr. Acharya. Thank you for the consult and for allowing us to participate in the care of this patient. - Date & Time Date: 05/21/16 Time: 12:08
[2016-05-21] MEDS: Potassium CL 10 MEQ/50 ML 50 ML IVPB SCH ×3 (13:10→15:12)
--- NOTE | 2016-05-21 23:06 | CP.PCM.CON ---
History of Present Illness - History of Present Illness History of Present Illness: 70 y/o male with a PMHx of significant smoking (1 to 1.5 PPD for 50 years) transferred from [place] for rehab. found to have bilateral cavitary lesions on CT scan at [place]. Infectious vs non infectious. NKDA Fam HX non Cont. Neg ETOH/Drug use. Neg Wt loss, night sweats, hemoptysis, sputum, audible chest sounds. O/ VSS afebrile PE: only sig for mild/mod distant bs. a/p As above: Plan: Cont course of ABX as per ID. Repeat CT scan of chest, I will review both CT's (from [place] and [place] with Rad, to see if there is resolution or improvement. ) Needs BURAK to r/o IE. Will need Bx if BURAK is negative, and CT shows no change. PUD and DVT Px. 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) HX Cerebrovascular Accident: Yes - HEENT Hx HEENT Problems: No - RENAL Hx Chronic Kidney Disease: No - ENDOCRINE/METABOLIC Hx Diabetes Mellitus Type 2: Yes - HEMATOLOGICAL/ONCOLOGICAL Hx Blood Disorders: Yes Hx Hepatitis C: Yes - INTEGUMENTARY Hx Dermatological Problems: No - MUSCULOSKELETAL/RHEUMATOLOGICAL Hx Musculoskeletal Disorders: Yes Hx Falls: Yes (FREQUENT FALLING) Hx Unsteady Gait: Yes - GASTROINTESTINAL Hx Gastrointestinal Disorders: No - GENITOURINARY/GYNECOLOGICAL Hx Genitourinary Disorders: No - PSYCHIATRIC Hx Psychophysiologic Disorder: Yes (SMOKES CIGARETTES PPD,H/O DRINKING BEER DAILY) Hx Substance Use: No - SURGICAL HISTORY Hx Surgeries: No - ANESTHESIA Hx Anesthesia: No Meds Allergies/Adverse Reactions: Allergies Allergy/AdvReac Type Severity Reaction Status Date / Time No Known Allergies Allergy Verified 05/17/16 23:09 - Medications Medications: Current Medications Albuterol/Ipratropium (Duoneb 3 Mg/0.5 Mg (3 Ml) Ud) 3 ml INH RQID [facility] Last Admin: 05/21/16 20:17 Dose: 3 ml Aspirin (Ecotrin) 81 mg PO DAILY [facility] Last Admin: 05/21/16 08:25 Dose: 81 mg Atorvastatin Calcium (Lipitor) 20 mg PO HS [facility] Last Admin: 05/21/16 21:28 Dose: 20 mg Docusate Sodium (Colace) 100 mg PO BID [facility] Last Admin: 05/21/16 16:43 Dose: 100 mg Cefepime HCl 1 gm/ Sodium (Chloride) 100 mls @ 100 mls/hr IVPB Q12H [facility] Last Admin: 05/21/16 16:43 Dose: 100 mls/hr Azithromycin 500 mg/ Sodium (Chloride) 250 mls @ 250 mls/hr IVPB DAILY@0600 [facility] Last Admin: 05/21/16 05:41 Dose: 250 mls/hr Vancomycin HCl 1 gm/ Sodium (Chloride) 250 mls @ 166.667 mls/hr IVPB Q12H [facility] Last Admin: 05/21/16 13:15 Dose: 166.667 mls/hr Micafungin Sodium 100 mg/ (Sodium Chloride) 100 mls @ 100 mls/hr IVPB DAILY [facility] Last Admin: 05/21/16 08:26 Dose: 100 mls/hr Insulin Human Regular (Humulin R) 0 units SC ACHS [facility] PRN Reason: Protocol Last Admin: 05/21/16 16:24 Dose: Not Given Lactobacillus Acidophilus (Bacid Acidophilus) 1 cap PO BID [facility] Last Admin: 05/21/16 16:43 Dose: 1 cap Metformin HCl (Glucophage) 500 mg PO BIDWM [facility] Last Admin: 05/21/16 16:43 Dose: 500 mg Pantoprazole Sodium (Protonix Ec Tab) 40 mg PO DAILY [facility] Last Admin: 05/21/16 08:26 Dose: 40 mg Results - Vital Signs Recent Vital Signs: Last Vital Signs Temp 97.2 F L 05/21/16 19:33 Pulse 81 05/21/16 19:33 Resp 21 05/21/16 19:33 BP 110/72 05/21/16 19:33 Pulse Ox 97 05/21/16 19:33 - Labs Result Diagrams: 05/19/16 07:27 05/21/16 05:30 Labs: Laboratory Results - last 24 hr 05/20/16 05/21/16 05/21/16 21:27 05:30 05:38 Sodium 137 Potassium 3.1 L Chloride 97 L Carbon Dioxide 39 H Anion Gap 4 L BUN 10 Creatinine 0.4 L Est GFR ( Amer) > 60 Est GFR (Non-Af Amer) > 60 POC Glucose (mg/dL) 92 95 Random Glucose 97 Calcium 7.6 L 05/21/16 05/21/16 10:56 15:50 Sodium Potassium Chloride Carbon Dioxide Anion Gap BUN Creatinine Est GFR ( Amer) Est GFR (Non-Af Amer) POC Glucose (mg/dL) 116 H 94 Random Glucose Calcium
[2016-05-22] MEDS: Cefepime 1 GM in Sodium Chloride 0.9% 100 ML IVPB SCH ×2 (04:18→16:17)
[2016-05-22] MEDS: Azithromycin 500 MG in Sodium Chloride 0.9% 250 ML IVPB SCH (05:41)
[2016-05-22 07:11] LABS: HEMATOCRIT 27.7 % (35.0-51.0); MEAN CELL VOLUME 90.8 fl (80.0-94.0); MEAN CORPUSCULAR HEMOGLOBIN 30.8 pg (27.0-31.0); MEAN CORPUSCULAR HGB CONC 33.9 g/dL (33.0-37.0); RED CELL DISTRIBUTION WIDTH 13.7 % (11.5-14.5); WHITE BLOOD COUNT 4.1 K/uL (4.8-10.8)
[2016-05-22 07:36] LABS: BLOOD UREA NITROGEN 8 mg/dl (9-20); CALCIUM 7.6 mg/dL (8.4-10.2); CARBON DIOXIDE 36 mmol/L (22-30); CHLORIDE 98 mmol/L (98-107); GFR AFRICAN-AMERICAN > 60; GLUCOSE,RANDOM 91 mg/dL (75-110); POTASSIUM 3.3 MMOL/L (3.6-5.0); SODIUM 144 mmol/l (132-148)
[2016-05-22] MEDS: Albuterol-Ipratrop 3 mg / 0.5 (3 ml) UD INH SCH ×4 (07:38→19:32)
[2016-05-22] MEDS: Insulin Regular 100 units/ml SC SCH ×4 (07:39→21:11)
[2016-05-22] MEDS: Lactobacillus Acidophilus 500 MU Cap PO SCH ×2 (08:25→16:19)
[2016-05-22] MEDS: Pantoprazole 40 mg EC Tab PO SCH (08:25)
[2016-05-22] MEDS: Micafungin 100 MG in Sodium Chloride 0.9% 100 ML IVPB SCH (08:26)
[2016-05-22] MEDS ORDERED: Enoxaparin 40 mg Syringe SC SCH (09:00)
--- NOTE | 2016-05-22 12:57 | CP.PCM.PN ---
Subjective - Date & Time of Evaluation Date of Evaluation: 05/22/16 Time of Evaluation: 14:00 - Subjective Subjective: Patient seen and evaluated bedside. Sitting in chair in NAD. Feeling better. Participating with PT. Hemodynamically stable,afebrile. No acute issues overnight. Objective - Vital Signs/Intake and Output Vital Signs (last 24 hours): Temp Pulse Resp BP Pulse Ox 97.9 F 85 20 123/69 94 L 05/22/16 09:02 05/22/16 09:02 05/22/16 09:02 05/22/16 09:02 05/22/16 09:02 - Medications Medications: Current Medications Albuterol/Ipratropium (Duoneb 3 Mg/0.5 Mg (3 Ml) Ud) 3 ml INH RQID [facility] Last Admin: 05/22/16 12:53 Dose: Not Given Aspirin (Ecotrin) 81 mg PO DAILY [facility] Last Admin: 05/22/16 08:25 Dose: 81 mg Atorvastatin Calcium (Lipitor) 20 mg PO HS [facility] Last Admin: 05/21/16 21:28 Dose: 20 mg Docusate Sodium (Colace) 100 mg PO BID [facility] Last Admin: 05/22/16 08:26 Dose: 100 mg Enoxaparin Sodium (Lovenox) 40 mg SC DAILY [facility] PRN Reason: Protocol Cefepime HCl 1 gm/ Sodium (Chloride) 100 mls @ 100 mls/hr IVPB Q12H [facility] Last Admin: 05/22/16 04:18 Dose: 100 mls/hr Azithromycin 500 mg/ Sodium (Chloride) 250 mls @ 250 mls/hr IVPB DAILY@0600 [facility] Last Admin: 05/22/16 05:41 Dose: 250 mls/hr Vancomycin HCl 1 gm/ Sodium (Chloride) 250 mls @ 166.667 mls/hr IVPB Q12H [facility] Last Admin: 05/22/16 01:16 Dose: 166.667 mls/hr Micafungin Sodium 100 mg/ (Sodium Chloride) 100 mls @ 100 mls/hr IVPB DAILY [facility] Last Admin: 05/22/16 08:26 Dose: 100 mls/hr Insulin Human Regular (Humulin R) 0 units SC ACHS [facility] PRN Reason: Protocol Last Admin: 05/22/16 12:07 Dose: Not Given Lactobacillus Acidophilus (Bacid Acidophilus) 1 cap PO BID [facility] Last Admin: 05/22/16 08:25 Dose: 1 cap Metformin HCl (Glucophage) 500 mg PO BIDWM [facility] Last Admin: 05/22/16 08:25 Dose: 500 mg Pantoprazole Sodium (Protonix Ec Tab) 40 mg PO DAILY [facility] Last Admin: 05/22/16 08:25 Dose: 40 mg Potassium Chloride (Potassium Chloride Oral Soln) 20 meq PO ONCE ONE Stop: 05/22/16 12:55 - Labs Labs: 05/22/16 05:30 05/22/16 05:30 PT 11.0 SECONDS (9.6-11.2) 05/18/16 08:04 INR 1.06 (0.92-1.08) 05/18/16 08:04 APTT 25.0 SECONDS (23.3-32.5) 05/18/16 08:04 - Constitutional Appears: Non-toxic, No Acute Distress, Other (murbidly obese) - Head Exam Head Exam: ATRAUMATIC, NORMAL INSPECTION, NORMOCEPHALIC - Eye Exam Eye Exam: EOMI, Normal appearance, PERRL Pupil Exam: NORMAL ACCOMODATION - ENT Exam ENT Exam: Mucous Membranes Moist, Normal Exam - Neck Exam Neck Exam: Full ROM, Normal Inspection - Respiratory Exam Respiratory Exam: Clear to Ausculation Bilateral, NORMAL BREATHING PATTERN. absent: Accessory Muscle Use, Rales, Wheezes, Respiratory Distress - Cardiovascular Exam Cardiovascular Exam: +S1, +S2. absent: Tachycardia, JVD - GI/Abdominal Exam GI & Abdominal Exam: Soft, Normal Bowel Sounds. absent: Distended, Tenderness, Rebound - Rectal Exam Rectal Exam: Deferred - Extremities Exam Extremities Exam: Full ROM, Normal Capillary Refill, Normal Inspection. absent : Calf Tenderness, Pedal Edema - Back Exam Back Exam: NORMAL INSPECTION - Neurological Exam Neurological Exam: Alert, Awake, CN II-XII Intact, Oriented x3 - Psychiatric Exam Psychiatric exam: Normal Affect, Normal Mood - Skin Skin Exam: Dry, Warm Assessment and Plan - Assessment and Plan (Free Text) Assessment: 70 yo male with history of DM2 and Hep C admitted [place] [facility] because of subacute CVA and bilateral lower lobe cavitary lesions. He was transferred to Acute Rehab for PT/OT. 1. Left sided Subacute CVA physiatry consult with Dr Torey Bowman and ASA doing well with PT/OT 2. Bibasal Cavitary Lesions to consider healthcare-associated pneumonia (with associated bronchiectasis) Continue vancomycin, zithromax,Micafungin and maxipime ID and pulmonary consulted Bobby repeat CT chest to evaluate cavitary lesions f/u quantiferon May need Ct guided biopsy of the lesions if medical management result in no improvement in cavitary lesions 3. DM II BS controlled on Metformin 500mg BID 4. Hepatitis C Follow up with PCP as outpatient 5. Anemia/ thrombocytopenia Most likely anemia of chronic disease Check anemia work up 6. Obesity dietitian consult 7. Hypokalemia replace with KCl 20 MEQ po today 8. DVT prophylaxis Lovenox 40mg SC daily
[2016-05-22] MEDS ORDERED: Potassium Chloride 20 mEq/15 ml LIQ UD PO ONE (13:00)
[2016-05-22] MEDS ORDERED: Enoxaparin 40 mg Syringe SC ONE (17:00)
[2016-05-22 18:27] LABS: IRON 57 ug/dL (49-181)
--- NOTE | 2016-05-22 21:50 | CP.PCM.PN ---
Subjective - Subjective Subjective: Reviewed CT scan today. Awaiting official report by Rad. Will ask to compare with previous CT done at [place]. It is my observation that the ct scan shows some improvement of cavitary lesions; but would want to go over it with Rad as discussed. Cont same treatment for now. Will see again tomorrow. Objective - Vital Signs/Intake and Output Vital Signs (last 24 hours): Temp Pulse Resp BP Pulse Ox 97.2 F L 89 20 120/70 96 05/22/16 19:47 05/22/16 19:47 05/22/16 19:47 05/22/16 19:47 05/22/16 19:47 - Medications Medications: Current Medications Albuterol/Ipratropium (Duoneb 3 Mg/0.5 Mg (3 Ml) Ud) 3 ml INH RQID [facility] Last Admin: 05/22/16 19:32 Dose: 3 ml Aspirin (Ecotrin) 81 mg PO DAILY [facility] Last Admin: 05/22/16 08:25 Dose: 81 mg Atorvastatin Calcium (Lipitor) 20 mg PO HS [facility] Last Admin: 05/22/16 21:09 Dose: 20 mg Docusate Sodium (Colace) 100 mg PO BID [facility] Last Admin: 05/22/16 16:17 Dose: 100 mg Enoxaparin Sodium (Lovenox) 40 mg SC DAILY@1700 [facility] PRN Reason: Protocol Cefepime HCl 1 gm/ Sodium (Chloride) 100 mls @ 100 mls/hr IVPB Q12H [facility] Last Admin: 05/22/16 16:17 Dose: 100 mls/hr Azithromycin 500 mg/ Sodium (Chloride) 250 mls @ 250 mls/hr IVPB DAILY@0600 [facility] Last Admin: 05/22/16 05:41 Dose: 250 mls/hr Vancomycin HCl 1 gm/ Sodium (Chloride) 250 mls @ 166.667 mls/hr IVPB Q12H [facility] Last Admin: 05/22/16 13:18 Dose: 166.667 mls/hr Micafungin Sodium 100 mg/ (Sodium Chloride) 100 mls @ 100 mls/hr IVPB DAILY [facility] Last Admin: 05/22/16 08:26 Dose: 100 mls/hr Insulin Human Regular (Humulin R) 0 units SC ACHS [facility] PRN Reason: Protocol Last Admin: 05/22/16 21:11 Dose: Not Given Lactobacillus Acidophilus (Bacid Acidophilus) 1 cap PO BID [facility] Last Admin: 05/22/16 16:19 Dose: 1 cap Metformin HCl (Glucophage) 500 mg PO BIDWM [facility] Last Admin: 05/22/16 16:17 Dose: 500 mg Pantoprazole Sodium (Protonix Ec Tab) 40 mg PO DAILY [facility] Last Admin: 05/22/16 08:25 Dose: 40 mg - Labs Labs: 05/22/16 05:30 05/22/16 05:30 PT 11.0 SECONDS (9.6-11.2) 05/18/16 08:04 INR 1.06 (0.92-1.08) 05/18/16 08:04 APTT 25.0 SECONDS (23.3-32.5) 05/18/16 08:04
[2016-05-23] MEDS: Cefepime 1 GM in Sodium Chloride 0.9% 100 ML IVPB SCH ×2 (04:24→16:32)
[2016-05-23] MEDS: Azithromycin 500 MG in Sodium Chloride 0.9% 250 ML IVPB SCH (05:12)
[2016-05-23] MEDS: Insulin Regular 100 units/ml SC SCH ×4 (06:44→21:44)
[2016-05-23] MEDS: Albuterol-Ipratrop 3 mg / 0.5 (3 ml) UD INH SCH ×4 (07:42→20:23)
[2016-05-23] MEDS: Lactobacillus Acidophilus 500 MU Cap PO SCH ×2 (08:35→17:18)
[2016-05-23] MEDS: Pantoprazole 40 mg EC Tab PO SCH (08:36)
--- NOTE | 2016-05-23 08:58 | CT ---
PROCEDURE: CT Chest without contrast HISTORY: SOB COMPARISON: None. TECHNIQUE: Contiguous axial images were obtained through the chest without intravenous contrast enhancement. Sagittal and coronal reconstructions were performed. Radiation dose (DLP): 713.08 mGy-cm. FINDINGS: LUNGS: 9 mm nodule in right upper lobe (series 3, image 42). There is an ill-defined peribronchial opacity seen on series 3, image 50 through 53. This is in the anterior segment, right upper lobe. Uncertain significance. Vaguely rounded opacity, pleural-based, extending in a somewhat curvilinear fashion suggesting rounded atelectasis. Cannot rule out neoplasm. The rounded portion of this measures approximately 2.3 cm. . 6 mm subpleural nodule in superior segment right lower lobe (series 3, image 56). Calcified granuloma in right lower lobe (series 3, image 76). Right lower lobe linear scar/atelectasis. Trace bilateral pleural effusion and minimal bilateral lower lobe compressive atelectasis. MEDIASTINUM: Mild aneurysmal dilatation of the ascending thoracic aorta to a diameter of 4.2 cm. Normal heart size. Left PICC catheter terminating in right atrium. Main pulmonary artery unremarkable. No vascular congestion. No lymphadenopathy. Unremarkable thyroid. Mild bilateral gynecomastia. PLEURA: Trace bilateral pleural effusion. BONES: No fracture. No destructive lesion. UPPER ABDOMEN: Grossly unremarkable. OTHER FINDINGS: None. IMPRESSION: Several pulmonary nodules as described, largest 9 mm. Vague peribronchial opacity, nonspecific, anterior right upper lobe. Curvilinear consolidation in left lower lobe, possibly rounded atelectasis versus neoplasm. 2.3 cm diameter. . Followup to exclude neoplasm. Given the size of the questionable mass in the left lower lobe and of the 9 mm right upper lobe nodule, consideration may be given to PET-CT evaluation. Alternatively, if the left lower lobe opacity resolves, follow-up may be performed as per Fleischner society criteria with noncontrast chest CT in 3 months. Aneurysmal dilatation of ascending thoracic aorta. Trace bilateral pleural effusion and lower lobe compressive atelectasis. No lymphadenopathy.
[2016-05-23] MEDS: Micafungin 100 MG in Sodium Chloride 0.9% 100 ML IVPB SCH (09:22)
[2016-05-23 12:19] LABS: FOLATE 9.1 ng/mL
--- NOTE | 2016-05-23 12:35 | CP.PCM.PN ---
Subjective - Date & Time of Evaluation Date of Evaluation: 05/21/16 Time of Evaluation: 13:00 - Subjective Subjective: no acute complaints at present Objective - Vital Signs/Intake and Output Vital Signs (last 24 hours): Temp Pulse Resp BP Pulse Ox 98.3 F 89 22 122/85 96 05/23/16 08:37 05/23/16 08:37 05/23/16 08:37 05/23/16 08:37 05/23/16 08:37 - Medications Medications: Current Medications Albuterol/Ipratropium (Duoneb 3 Mg/0.5 Mg (3 Ml) Ud) 3 ml INH RQID [facility] Last Admin: 05/23/16 11:06 Dose: Not Given Aspirin (Ecotrin) 81 mg PO DAILY [facility] Last Admin: 05/23/16 08:36 Dose: 81 mg Atorvastatin Calcium (Lipitor) 20 mg PO HS [facility] Last Admin: 05/22/16 21:09 Dose: 20 mg Docusate Sodium (Colace) 100 mg PO BID [facility] Last Admin: 05/23/16 08:36 Dose: 100 mg Enoxaparin Sodium (Lovenox) 40 mg SC DAILY@1700 [facility] PRN Reason: Protocol Cefepime HCl 1 gm/ Sodium (Chloride) 100 mls @ 100 mls/hr IVPB Q12H [facility] Last Admin: 05/23/16 04:24 Dose: 100 mls/hr Azithromycin 500 mg/ Sodium (Chloride) 250 mls @ 250 mls/hr IVPB DAILY@0600 [facility] Last Admin: 05/23/16 05:12 Dose: 250 mls/hr Vancomycin HCl 1 gm/ Sodium (Chloride) 250 mls @ 166.667 mls/hr IVPB Q12H [facility] Last Admin: 05/23/16 01:32 Dose: 166.667 mls/hr Micafungin Sodium 100 mg/ (Sodium Chloride) 100 mls @ 100 mls/hr IVPB DAILY [facility] Last Admin: 05/23/16 09:22 Dose: 100 mls/hr Insulin Human Regular (Humulin R) 0 units SC ACHS [facility] PRN Reason: Protocol Last Admin: 05/23/16 06:44 Dose: Not Given Lactobacillus Acidophilus (Bacid Acidophilus) 1 cap PO BID [facility] Last Admin: 05/23/16 08:35 Dose: 1 cap Metformin HCl (Glucophage) 500 mg PO BIDWM [facility] Last Admin: 05/23/16 08:36 Dose: 500 mg Pantoprazole Sodium (Protonix Ec Tab) 40 mg PO DAILY [facility] Last Admin: 05/23/16 08:36 Dose: 40 mg - Labs Labs: 05/22/16 05:30 05/22/16 05:30 PT 11.0 SECONDS (9.6-11.2) 05/18/16 08:04 INR 1.06 (0.92-1.08) 05/18/16 08:04 APTT 25.0 SECONDS (23.3-32.5) 05/18/16 08:04 - Head Exam Head Exam: ATRAUMATIC, NORMAL INSPECTION, NORMOCEPHALIC - Eye Exam Eye Exam: EOMI, Normal appearance, PERRL Pupil Exam: NORMAL ACCOMODATION - ENT Exam ENT Exam: Mucous Membranes Moist, Normal Exam - Neck Exam Neck Exam: Normal Inspection - Respiratory Exam Respiratory Exam: NORMAL BREATHING PATTERN - Cardiovascular Exam Cardiovascular Exam: REGULAR RHYTHM - GI/Abdominal Exam GI & Abdominal Exam: Normal Bowel Sounds - Rectal Exam Rectal Exam: NORMAL INSPECTION - Exam Exam: NORMAL INSPECTION External exam: NORMAL EXTERNAL EXAM - Extremities Exam Extremities Exam: Normal Capillary Refill, Normal Inspection - Back Exam Back Exam: NORMAL INSPECTION - Neurological Exam Neurological Exam: Alert, Awake Neuro motor strength exam: Left Upper Extremity: 3, Right Upper Extremity: 3, Left Lower Extremity: 3, Right Lower Extremity: 3 - Psychiatric Exam Psychiatric exam: Normal Affect, Normal Mood - Skin Skin Exam: Dry, Normal Color Assessment and Plan (1) Pulmonary cavitary lesion Status: Acute (2) Stroke Assessment & Plan: plan for physical, occupational, speech and rec therapy Status: Acute (3) Hepatitis C Status: Acute
--- NOTE | 2016-05-23 12:38 | CP.PCM.PN ---
Subjective - Date & Time of Evaluation Date of Evaluation: 05/23/16 Time of Evaluation: 11:00 - Subjective Subjective: no neck or back pain alert freindly Objective - Vital Signs/Intake and Output Vital Signs (last 24 hours): Temp Pulse Resp BP Pulse Ox 98.3 F 89 22 122/85 96 05/23/16 08:37 05/23/16 08:37 05/23/16 08:37 05/23/16 08:37 05/23/16 08:37 - Medications Medications: Current Medications Albuterol/Ipratropium (Duoneb 3 Mg/0.5 Mg (3 Ml) Ud) 3 ml INH RQID [facility] Last Admin: 05/23/16 11:06 Dose: Not Given Aspirin (Ecotrin) 81 mg PO DAILY [facility] Last Admin: 05/23/16 08:36 Dose: 81 mg Atorvastatin Calcium (Lipitor) 20 mg PO HS [facility] Last Admin: 05/22/16 21:09 Dose: 20 mg Docusate Sodium (Colace) 100 mg PO BID [facility] Last Admin: 05/23/16 08:36 Dose: 100 mg Enoxaparin Sodium (Lovenox) 40 mg SC DAILY@1700 [facility] PRN Reason: Protocol Cefepime HCl 1 gm/ Sodium (Chloride) 100 mls @ 100 mls/hr IVPB Q12H [facility] Last Admin: 05/23/16 04:24 Dose: 100 mls/hr Azithromycin 500 mg/ Sodium (Chloride) 250 mls @ 250 mls/hr IVPB DAILY@0600 [facility] Last Admin: 05/23/16 05:12 Dose: 250 mls/hr Vancomycin HCl 1 gm/ Sodium (Chloride) 250 mls @ 166.667 mls/hr IVPB Q12H [facility] Last Admin: 05/23/16 01:32 Dose: 166.667 mls/hr Micafungin Sodium 100 mg/ (Sodium Chloride) 100 mls @ 100 mls/hr IVPB DAILY [facility] Last Admin: 05/23/16 09:22 Dose: 100 mls/hr Insulin Human Regular (Humulin R) 0 units SC ACHS [facility] PRN Reason: Protocol Last Admin: 05/23/16 06:44 Dose: Not Given Lactobacillus Acidophilus (Bacid Acidophilus) 1 cap PO BID [facility] Last Admin: 05/23/16 08:35 Dose: 1 cap Metformin HCl (Glucophage) 500 mg PO BIDWM [facility] Last Admin: 05/23/16 08:36 Dose: 500 mg Pantoprazole Sodium (Protonix Ec Tab) 40 mg PO DAILY [facility] Last Admin: 05/23/16 08:36 Dose: 40 mg - Labs Labs: 05/22/16 05:30 05/22/16 05:30 PT 11.0 SECONDS (9.6-11.2) 05/18/16 08:04 INR 1.06 (0.92-1.08) 05/18/16 08:04 APTT 25.0 SECONDS (23.3-32.5) 05/18/16 08:04 - Head Exam Head Exam: ATRAUMATIC, NORMAL INSPECTION, NORMOCEPHALIC - Eye Exam Eye Exam: EOMI, Normal appearance, PERRL Pupil Exam: NORMAL ACCOMODATION - ENT Exam ENT Exam: Mucous Membranes Moist, Normal Exam - Respiratory Exam Respiratory Exam: NORMAL BREATHING PATTERN - Cardiovascular Exam Cardiovascular Exam: REGULAR RHYTHM - GI/Abdominal Exam GI & Abdominal Exam: Normal Bowel Sounds - Rectal Exam Rectal Exam: NORMAL INSPECTION - Exam External exam: NORMAL EXTERNAL EXAM - Extremities Exam Extremities Exam: Full ROM, Normal Capillary Refill - Back Exam Back Exam: NORMAL INSPECTION - Neurological Exam Neurological Exam: Alert, Awake Neuro motor strength exam: Left Upper Extremity: 3, Right Upper Extremity: 3, Left Lower Extremity: 3, Right Lower Extremity: 3 - Psychiatric Exam Psychiatric exam: Normal Affect, Normal Mood - Skin Skin Exam: Dry, Intact Assessment and Plan (1) Pulmonary cavitary lesion Status: Acute (2) Stroke Assessment & Plan: skin buttock stage 2 still healing physcial, occupational, speech and rec therapy team conference for tomorrow Status: Acute (3) Hepatitis C Status: Acute
[2016-05-23] MEDS: Enoxaparin 40 mg Syringe SC SCH (17:19)
--- NOTE | 2016-05-23 21:54 | CP.PCM.PN ---
Subjective - Subjective Subjective: Dx CVA Multiple cavitary lesions on CT Scan Called to evaluate the aforementioned. I have reviewed the CT scan done at [place], and the one done here at [place] with the Radiologist. S/ Feelling a bit better. O/ Afeb VSS Lungs some scattered crackles no c,c,e a/p New ct when compared to old one is showing new nodules, and the cavitating one in the LLL getting a bit bigger. Only an infectious process can produce such finding so quickly. There are other nodules which need to be followed up closely in view of this patient's history of heavy tobacco exposure. plan: I recommend a BURAK to r/o IE with septic embolization. Cont ABX as per ID. If repeat CT (would repeat in one week) does not show improvement, I recommend IR to do CT guided Bx of cavitary lesion abutting the pleura in the LLL. He also needs a repeat CT scan in 3 months as outpatient, to assess the nature of other nodules. I will sign out of case for now, he can follow up with me at my office in [place], or if he has a private door clamper on the outside. He/family can call my office at: [phone] Objective - Vital Signs/Intake and Output Vital Signs (last 24 hours): Temp Pulse Resp BP Pulse Ox 97.9 F 91 H 20 112/60 95 05/23/16 20:43 05/23/16 20:43 05/23/16 20:43 05/23/16 20:43 05/23/16 20:43 - Medications Medications: Current Medications Albuterol/Ipratropium (Duoneb 3 Mg/0.5 Mg (3 Ml) Ud) 3 ml INH RQID [facility] Last Admin: 05/23/16 20:23 Dose: 3 ml Aspirin (Ecotrin) 81 mg PO DAILY [facility] Last Admin: 05/23/16 08:36 Dose: 81 mg Atorvastatin Calcium (Lipitor) 20 mg PO HS [facility] Last Admin: 05/23/16 21:45 Dose: 20 mg Docusate Sodium (Colace) 100 mg PO BID [facility] Last Admin: 05/23/16 17:18 Dose: 100 mg Enoxaparin Sodium (Lovenox) 40 mg SC DAILY@1700 [facility] PRN Reason: Protocol Last Admin: 03/21/17 17:19 Dose: 40 mg Cefepime HCl 1 gm/ Sodium (Chloride) 100 mls @ 100 mls/hr IVPB Q12H [facility] Last Admin: 05/23/16 16:32 Dose: 100 mls/hr Azithromycin 500 mg/ Sodium (Chloride) 250 mls @ 250 mls/hr IVPB DAILY@0600 [facility] Last Admin: 05/23/16 05:12 Dose: 250 mls/hr Vancomycin HCl 1 gm/ Sodium (Chloride) 250 mls @ 166.667 mls/hr IVPB Q12H [facility] Last Admin: 05/23/16 14:42 Dose: 166.667 mls/hr Micafungin Sodium 100 mg/ (Sodium Chloride) 100 mls @ 100 mls/hr IVPB DAILY [facility] Last Admin: 05/23/16 09:22 Dose: 100 mls/hr Insulin Human Regular (Humulin R) 0 units SC ACHS [facility] PRN Reason: Protocol Last Admin: 05/23/16 21:44 Dose: Not Given Lactobacillus Acidophilus (Bacid Acidophilus) 1 cap PO BID [facility] Last Admin: 05/23/16 17:18 Dose: 1 cap Lactulose (Enulose) 20 gm PO DAILY [facility] PRN Reason: Constipation Last Admin: 05/23/16 18:56 Dose: 20 gm Metformin HCl (Glucophage) 500 mg PO BIDWM [facility] Last Admin: 05/23/16 17:19 Dose: 500 mg Pantoprazole Sodium (Protonix Ec Tab) 40 mg PO DAILY [facility] Last Admin: 05/23/16 08:36 Dose: 40 mg - Labs Labs: 05/22/16 05:30 05/22/16 05:30 PT 11.0 SECONDS (9.6-11.2) 05/18/16 08:04 INR 1.06 (0.92-1.08) 05/18/16 08:04 APTT 25.0 SECONDS (23.3-32.5) 05/18/16 08:04
[2016-05-24] MEDS: Cefepime 1 GM in Sodium Chloride 0.9% 100 ML IVPB SCH ×2 (04:56→16:38)
[2016-05-24] MEDS: Azithromycin 500 MG in Sodium Chloride 0.9% 250 ML IVPB SCH (06:06)
[2016-05-24] MEDS: Insulin Regular 100 units/ml SC SCH ×2 (06:48→11:28)
[2016-05-24] MEDS: Albuterol-Ipratrop 3 mg / 0.5 (3 ml) UD INH SCH ×5 (07:42→19:39)
[2016-05-24] MEDS: Lactobacillus Acidophilus 500 MU Cap PO SCH ×2 (08:41→16:42)
[2016-05-24] MEDS: Pantoprazole 40 mg EC Tab PO SCH (08:42)
[2016-05-24] MEDS: Micafungin 100 MG in Sodium Chloride 0.9% 100 ML IVPB SCH (10:04)
--- NOTE | 2016-05-24 12:14 | PSY.TMCNF ---
Nursing - Vital Signs Vital Signs (Last 8 hours): Vital Signs 05/24/16 05/24/16 08:30 11:26 Temperature 97.9 F Pulse Rate 83 98 H Respiratory 23 Rate Blood Pressure 132/83 O2 Sat by Pulse 97 93 L Oximetry Pain: 0 - Medications/Other Issues Comment: Pt at low nutritional risk. no goals. Follow-up due on 05/27/2016 - Wound Buttock Wound Type: Pressure Ulcer Wound Stage: STAGE II Wound Shape: Irregular Wound Edges: Open Tunneling: No Wound Bed Greatest Portion: Red (Granulation) Periwound: Reddened Wound Drainage Amount: None Wound General Appearance: Reddened Wound Dressing Status: Dry & Intact Dressing Changed: No Wound Primary Dressing Type: Allevyn - Bladder Management Bladder Pattern: Normal Voiding Method: Urinal - Bowel Management Bowel Pattern: Normal - Goals/Time Frame Comments: Pt was seen awake and alert laying in bed. Pt agreeable to participate in evaluation session. Pt was educated about the purpose and benefits of participating in recreation therapy sessions throughout his free time. Pt was able to identify minimal leisure interests such as watching television, cooking, and gardening. Pt was oriented to name and location where he lives. Pt demonstrated decrease orientation as he was only oriented to self. Pt required cues for orientation to place, month, year, and date. Pt seen eating dinner following evaluation session. Physical Therapy - Bed Mobility Bed Mobility: Verbal Cues, Contact Guard - Transfers Wheelchair to Mat: Verbal Cues, Contact Guard Sit to Stand: Verbal Cues, Contact Guard - Ambulation Level of Assistance: Verbal Cues, Contact Guard Distance (ft.): 130 Assistive Devices: Rolling Walker Comment: Cueing throughout gait training to perform deep breathing exercises to minimize fatigue. - Stair Negotiation Stairs: Level of Assistance: Verbal Cues, Contact Guard, Minimal Assistance Number of Stairs: 4 Handrails: Bilateral Comment: pt completes practice stairs x 2 trials with seated rest breaks between trials. Cueing requires for proper LE placement to inc. safety. Pt demonstrates SOB on stairs, SpO2 WNL on room air. - Standing Balance Static Stand: Supervision Dynamic Stand: Contact Guard Assist - Pain Pain (assessed during therapy session): 0 - Insight/Carryover Insight/Carryover: Good - Patient/Family Education Comment: Pt educated provided for increased safety awareness, proper techniques , and energy conservation techniques/strategies during functional transfers, ADLs. Pt educated in DME and AE - edu ongoing. - Assessment/Plan Assessment: Ramon Garibay presents with mild-moderate cognitive linguistic deficits characterized by impaired orientation, immediate and short-term recall, linguistic organization and word finding, writing, and verbal reasoning. Pt would benefit from ST 3-5x/week to improve cognition. [ End ] - Goals Timeframe: 2 weeks Goals: Pt will be NE for all fxnl transfers w RW. Pt will be NE for all ADLs - Provider Therapist: Indira Mcclendon, PT, DPT License Number: [id number] Occupational Therapy - Arousal/Attention/Orientation Patient Orientation: Person, Place - ADL/IADL Self Feeding: Supervision Grooming: Supervision Bathing-Upper Extremity: Contact Guard Bathing-Lower Extremity: Contact Guard Dressing-Upper Extremity: Supervision, Set-up Help Dressing-Lower Extremity: Contact Guard, Minimal Assistance - Sitting Balance Static Sitting: Independent without upper extremity support Dynamic Sitting: Reaches across midline, Reaches out of base of support, Reaches within base of support, Requires supervision - Transfers Wheelchair to Bed Transfers: Supervision, Verbal Cues Toilet Transfers: Supervision, Verbal Cues Tub Transfers: Contact Guard Comment: w RW. Pt noted with LOB during bathing transfers w DME and RW and thus required max assist to safely reposition at this time - edu ongoing in this area. - Wheelchair Management Level of Assistance: Supervision Distance (ft.): 100 - Upper Extremity Status Right Upper Extremity Comment: ROM and strength WFL Left Upper Extremity Comment: ROM and strength WFL - Pain Pain (assessed during therapy session): 0 - Insight/Carryover Insight/Carryover: Good - Patient/Family Education Comment: Pt educated provided for increased safety awareness, proper techniques , and energy conservation techniques/strategies during functional transfers, ADLs. Pt educated in DME and AE - edu ongoing. - Assessment/Plan Assessment: Ramon Garibay presents with mild-moderate cognitive linguistic deficits characterized by impaired orientation, immediate and short-term recall, linguistic organization and word finding, writing, and verbal reasoning. Pt would benefit from ST 3-5x/week to improve cognition. [ End ] - Goals Timeframe: 2 weeks Goals: Pt will be NE for all fxnl transfers w RW. Pt will be NE for all ADLs - Provider Therapist: lopez alcocer License Number: [id number] Speech Therapy - Consult Information Patient on Program: Yes Medical Diagnosis: CVA Treatment Diagnosis: cognitive-linguistic deficits - Assessment Expressive Language Impairment: Mild Problem Solving Impairment: Mild Memory Impairment: Moderate - Plan Assessment: Ramon Garibay presents with mild-moderate cognitive linguistic deficits characterized by impaired orientation, immediate and short-term recall, linguistic organization and word finding, writing, and verbal reasoning. Pt would benefit from ST 3-5x/week to improve cognition. [ End ] Plan: Continue Speech/Language Therapy Frequency: 3-5 times per week Duration: 1 week - Provider Therapist: Tia Harrell License Number: [id number] Recreational Therapy - Participation Participation: Participates in Individual and/or Group Sessions - Attendance Attendance: 3-5 times per week - Activities Leisure Activities: Crafts - Socialization Level of Socialization: Initiates/interacts freely with care givers and peer - Diversional Time Diversional Time: television - Assessment Assessment/Plan: Ramon Garibay presents with mild-moderate cognitive linguistic deficits characterized by impaired orientation, immediate and short-term recall , linguistic organization and word finding, writing, and verbal reasoning. Pt would benefit from ST 3-5x/week to improve cognition. [ End ] - Provider Therapist: Lindsey Morrow, [employer] #[id number] Nutrition - Current Diet Current Diet/ Supplement/ Feedings: Moderate consistent CHO Heart healthy diet - Appetite Percent Meal Consumed: 75-100% - Assessment/Goals/Time Frame Assessment/Goals/Time Frame: Pt at low nutritional risk. no goals. Follow-up due on 05/27/2016 - Provider Provider: Giovana Martinez RD Case Management - Discharge Plan Discharge Plan: Home with significant other/family Rehabilitation Plan - Treatment Plan Treatment Plan: Physical Therapy, Occupational Therapy, Speech, Dietary, Patient /Family Education - Recommendation Recommendation: Physical Therapy, Occupational Therapy, Speech, Dietary, Patient /Family Education - Discharge Plan Discharge to: Home (DC 29)
--- NOTE | 2016-05-24 12:38 | CP.PCM.PN ---
Subjective - Date & Time of Evaluation Date of Evaluation: 05/24/16 Time of Evaluation: 12:00 - Subjective Subjective: no acute complaints of pain Objective - Vital Signs/Intake and Output Vital Signs (last 24 hours): Temp Pulse Resp BP Pulse Ox 97.9 F 98 H 23 132/83 93 L 05/24/16 12:08 05/24/16 12:08 05/24/16 12:08 05/24/16 12:08 05/24/16 11:26 - Medications Medications: Current Medications Albuterol/Ipratropium (Duoneb 3 Mg/0.5 Mg (3 Ml) Ud) 3 ml INH RQID [facility] Last Admin: 05/24/16 12:06 Dose: 3 ml Aspirin (Ecotrin) 81 mg PO DAILY [facility] Last Admin: 05/24/16 08:41 Dose: 81 mg Atorvastatin Calcium (Lipitor) 20 mg PO HS [facility] Last Admin: 05/23/16 21:45 Dose: 20 mg Docusate Sodium (Colace) 100 mg PO BID [facility] Last Admin: 05/24/16 08:41 Dose: 100 mg Enoxaparin Sodium (Lovenox) 40 mg SC DAILY@1700 [facility] PRN Reason: Protocol Last Admin: 05/23/16 17:19 Dose: 40 mg Cefepime HCl 1 gm/ Sodium (Chloride) 100 mls @ 100 mls/hr IVPB Q12H [facility] Last Admin: 05/24/16 04:56 Dose: 100 mls/hr Azithromycin 500 mg/ Sodium (Chloride) 250 mls @ 250 mls/hr IVPB DAILY@0600 [facility] Last Admin: 05/24/16 06:06 Dose: 250 mls/hr Vancomycin HCl 1 gm/ Sodium (Chloride) 250 mls @ 166.667 mls/hr IVPB Q12H [facility] Last Admin: 05/24/16 01:33 Dose: 166.667 mls/hr Micafungin Sodium 100 mg/ (Sodium Chloride) 100 mls @ 100 mls/hr IVPB DAILY [facility] Last Admin: 05/24/16 10:04 Dose: 100 mls/hr Insulin Human Regular (Humulin R) 0 units SC DAILY@0630 [facility] PRN Reason: Protocol Lactobacillus Acidophilus (Bacid Acidophilus) 1 cap PO BID [facility] Last Admin: 05/24/16 08:41 Dose: 1 cap Lactulose (Enulose) 20 gm PO DAILY [facility] PRN Reason: Constipation Last Admin: 05/23/16 18:56 Dose: 20 gm Metformin HCl (Glucophage) 500 mg PO BIDWM [facility] Last Admin: 05/24/16 08:41 Dose: 500 mg Pantoprazole Sodium (Protonix Ec Tab) 40 mg PO DAILY [facility] Last Admin: 05/24/16 08:42 Dose: 40 mg - Labs Labs: 05/22/16 05:30 05/22/16 05:30 PT 11.0 SECONDS (9.6-11.2) 05/18/16 08:04 INR 1.06 (0.92-1.08) 05/18/16 08:04 APTT 25.0 SECONDS (23.3-32.5) 05/18/16 08:04 - Head Exam Head Exam: ATRAUMATIC, NORMAL INSPECTION, NORMOCEPHALIC - Eye Exam Eye Exam: EOMI, Normal appearance, PERRL Pupil Exam: NORMAL ACCOMODATION - ENT Exam ENT Exam: Mucous Membranes Moist, Normal Exam - Respiratory Exam Respiratory Exam: NORMAL BREATHING PATTERN - Cardiovascular Exam Cardiovascular Exam: REGULAR RHYTHM - GI/Abdominal Exam GI & Abdominal Exam: Normal Bowel Sounds - Rectal Exam Rectal Exam: NORMAL INSPECTION - Exam External exam: NORMAL EXTERNAL EXAM - Back Exam Back Exam: NORMAL INSPECTION - Neurological Exam Neurological Exam: Alert, Awake Neuro motor strength exam: Left Upper Extremity: 3, Right Upper Extremity: 3, Left Lower Extremity: 3, Right Lower Extremity: 3 - Psychiatric Exam Psychiatric exam: Normal Affect, Normal Mood - Skin Skin Exam: Dry, Intact, Normal Color Assessment and Plan (1) Pulmonary cavitary lesion Status: Acute (2) Stroke Assessment & Plan: physical, occupational, recreational and speech therapy status post team conference Status: Acute (3) Hepatitis C Status: Acute
[2016-05-24] MEDS: Enoxaparin 40 mg Syringe SC SCH (16:42)
--- NOTE | 2016-05-24 18:26 | CP.PCM.PN ---
Subjective - Date & Time of Evaluation Date of Evaluation: 05/24/16 Time of Evaluation: 13:00 - Subjective Subjective: Pt seen and examined. Denied any complaint Objective - Vital Signs/Intake and Output Vital Signs (last 24 hours): Temp Pulse Resp BP Pulse Ox 97.9 F 94 H 20 126/65 97 05/24/16 15:45 05/24/16 15:45 05/24/16 15:45 05/24/16 15:45 05/24/16 15:45 - Medications Medications: Current Medications Albuterol/Ipratropium (Duoneb 3 Mg/0.5 Mg (3 Ml) Ud) 3 ml INH RQID [facility] Last Admin: 05/24/16 16:30 Dose: 3 ml Aspirin (Ecotrin) 81 mg PO DAILY [facility] Last Admin: 05/24/16 08:41 Dose: 81 mg Atorvastatin Calcium (Lipitor) 20 mg PO HS [facility] Last Admin: 05/23/16 21:45 Dose: 20 mg Docusate Sodium (Colace) 100 mg PO BID [facility] Last Admin: 05/24/16 16:42 Dose: 100 mg Enoxaparin Sodium (Lovenox) 40 mg SC DAILY@1700 [facility] PRN Reason: Protocol Last Admin: 05/24/16 16:42 Dose: 40 mg Cefepime HCl 1 gm/ Sodium (Chloride) 100 mls @ 100 mls/hr IVPB Q12H [facility] Last Admin: 05/24/16 16:38 Dose: 100 mls/hr Azithromycin 500 mg/ Sodium (Chloride) 250 mls @ 250 mls/hr IVPB DAILY@0600 [facility] Last Admin: 05/24/16 06:06 Dose: 250 mls/hr Vancomycin HCl 1 gm/ Sodium (Chloride) 250 mls @ 166.667 mls/hr IVPB Q12H [facility] Last Admin: 05/24/16 13:51 Dose: 166.667 mls/hr Micafungin Sodium 100 mg/ (Sodium Chloride) 100 mls @ 100 mls/hr IVPB DAILY [facility] Last Admin: 05/24/16 10:04 Dose: 100 mls/hr Insulin Human Regular (Humulin R) 0 units SC DAILY@0630 [facility] PRN Reason: Protocol Lactobacillus Acidophilus (Bacid Acidophilus) 1 cap PO BID [facility] Last Admin: 05/24/16 16:42 Dose: 1 cap Lactulose (Enulose) 20 gm PO DAILY PRN PRN Reason: Constipation Last Admin: 05/23/16 18:56 Dose: 20 gm Metformin HCl (Glucophage) 500 mg PO BIDWM [facility] Last Admin: 05/24/16 16:42 Dose: 500 mg Pantoprazole Sodium (Protonix Ec Tab) 40 mg PO DAILY [facility] Last Admin: 05/24/16 08:42 Dose: 40 mg - Labs Labs: 05/22/16 05:30 05/22/16 05:30 PT 11.0 SECONDS (9.6-11.2) 05/18/16 08:04 INR 1.06 (0.92-1.08) 05/18/16 08:04 APTT 25.0 SECONDS (23.3-32.5) 05/18/16 08:04 - Constitutional Appears: No Acute Distress - Head Exam Head Exam: ATRAUMATIC - Eye Exam Eye Exam: absent: Scleral icterus - ENT Exam ENT Exam: Mucous Membranes Moist - Neck Exam Neck Exam: absent: Meningismus - Respiratory Exam Respiratory Exam: absent: Rhonchi, Wheezes, Respiratory Distress - Cardiovascular Exam Cardiovascular Exam: REGULAR RHYTHM, +S1, +S2 - GI/Abdominal Exam GI & Abdominal Exam: Soft. absent: Tenderness - Rectal Exam Rectal Exam: Deferred - Neurological Exam Neurological Exam: Alert, Oriented x3 - Psychiatric Exam Psychiatric exam: Normal Affect - Skin Skin Exam: Dry, Intact Assessment and Plan - Assessment and Plan (Free Text) Assessment: 70 yo male with history of DM2 and Hep C admitted at [facility] because of subacute CVA and bilateral lower lobe cavitary lesions. He was transferred to Acute Rehab for PT/OT. 1. Left sided Subacute CVA physiatry consult with Dr Wallace continue Lipitor and ASA doing well with PT/OT 2. Bibasal Cavitary Lesions to consider healthcare-associated pneumonia (with associated bronchiectasis) also need to rule out Sarcoidosis, fungal infection, lung abscess ID consult with Dr Lopes continue Vancomycin, Cefepime and Zithromax and Micafungin ECHO negative for vegetations; CRP is elevated to consider CT-guided biopsy of the lesions after treatment as per ID and typing pool supervisor 3. DM II BS controlled Metformin 500mg BID 4. Hepatitis C Follow up with PCP as outpatient 5. Anemia/ thrombocytopenia Most likely anemia of chronic disease and ITP 6. DVT prophylaxis Lovenox 40mg SC daily
[2016-05-25] MEDS: Cefepime 1 GM in Sodium Chloride 0.9% 100 ML IVPB SCH ×2 (04:07→17:04)
[2016-05-25] MEDS: Azithromycin 500 MG in Sodium Chloride 0.9% 250 ML IVPB SCH (05:28)
[2016-05-25] MEDS: Insulin Regular 100 units/ml SC SCH (06:37)
[2016-05-25 08:00] LABS: HEMATOCRIT 25.9 % (35.0-51.0); MEAN CELL VOLUME 91.7 fl (80.0-94.0); MEAN CORPUSCULAR HEMOGLOBIN 31.1 pg (27.0-31.0); MEAN CORPUSCULAR HGB CONC 33.9 g/dL (33.0-37.0); RED CELL DISTRIBUTION WIDTH 14.7 % (11.5-14.5); WHITE BLOOD COUNT 3.9 K/uL (4.8-10.8)
[2016-05-25] MEDS: Albuterol-Ipratrop 3 mg / 0.5 (3 ml) UD INH SCH ×4 (08:21→20:30)
[2016-05-25] MEDS: Lactobacillus Acidophilus 500 MU Cap PO SCH ×2 (09:06→17:04)
[2016-05-25] MEDS: Micafungin 100 MG in Sodium Chloride 0.9% 100 ML IVPB SCH (09:07)
[2016-05-25] MEDS: Pantoprazole 40 mg EC Tab PO SCH (09:08)
[2016-05-25] MEDS: Enoxaparin 40 mg Syringe SC SCH (17:04)
[2016-05-26] MEDS: Cefepime 1 GM in Sodium Chloride 0.9% 100 ML IVPB SCH ×2 (04:17→17:25)
[2016-05-26] MEDS: Azithromycin 500 MG in Sodium Chloride 0.9% 250 ML IVPB SCH (05:22)
[2016-05-26] MEDS: Insulin Regular 100 units/ml SC SCH (05:50)
[2016-05-26] MEDS: Albuterol-Ipratrop 3 mg / 0.5 (3 ml) UD INH SCH ×4 (07:41→20:21)
[2016-05-26 07:58] LABS: BLOOD UREA NITROGEN 8 mg/dl (9-20); CALCIUM 7.3 mg/dL (8.4-10.2); CARBON DIOXIDE 35 mmol/L (22-30); CHLORIDE 100 mmol/L (98-107); GFR AFRICAN-AMERICAN > 60; GLUCOSE,RANDOM 78 mg/dL (75-110); POTASSIUM 3.1 MMOL/L (3.6-5.0); SODIUM 145 mmol/l (132-148)
[2016-05-26] MEDS: Pantoprazole 40 mg EC Tab PO SCH (08:19)
[2016-05-26] MEDS: Lactobacillus Acidophilus 500 MU Cap PO SCH ×2 (08:19→17:26)
[2016-05-26] MEDS: Micafungin 100 MG in Sodium Chloride 0.9% 100 ML IVPB SCH (08:20)
--- NOTE | 2016-05-26 09:35 | CP.PCM.PN ---
Subjective - Date & Time of Evaluation Date of Evaluation: 05/26/16 Time of Evaluation: 16:02 - Subjective Subjective: pt doing well trouble sleeping, will give restoril no other complaints, denies cp sob tolerating PT well does have cough with production -- given mucomyst in addition to breathing treatments vss nad. Objective - Vital Signs/Intake and Output Vital Signs (last 24 hours): Temp Pulse Resp BP Pulse Ox 97.5 F L 90 20 116/74 94 L 05/26/16 09:14 05/26/16 09:14 05/26/16 09:14 05/26/16 09:14 05/26/16 09:14 Vitals stable and reviewed GEN: WDWN, alert, cooperative HEENT: NCAT, PERRL, EOMI Neck: supple, no lymphadenopathy CARDIO: +S1S2, RRR, NO M/R/G LUNG: +mild wheeze, coarse cough ABD: soft, NT, ND, no masses, no HSM EXT: no edema, pedal pulses Neuro: AAOx3, Strength equal, bilateral UE/LE Psych: normal mood, normal affect - Medications Medications: Current Medications Albuterol/Ipratropium (Duoneb 3 Mg/0.5 Mg (3 Ml) Ud) 3 ml INH RQID [facility] Last Admin: 05/26/16 07:41 Dose: 3 ml Aspirin (Ecotrin) 81 mg PO DAILY [facility] Last Admin: 05/26/16 08:19 Dose: 81 mg Atorvastatin Calcium (Lipitor) 20 mg PO HS [facility] Last Admin: 05/25/16 21:07 Dose: 20 mg Docusate Sodium (Colace) 100 mg PO BID [facility] Last Admin: 05/26/16 08:16 Dose: 100 mg Enoxaparin Sodium (Lovenox) 40 mg SC DAILY@1700 [facility] PRN Reason: Protocol Last Admin: 05/25/16 17:04 Dose: 40 mg Ferrous Sulfate (Feosol) 325 mg PO BID [facility] Last Admin: 05/26/16 08:15 Dose: 325 mg Cefepime HCl 1 gm/ Sodium (Chloride) 100 mls @ 100 mls/hr IVPB Q12H [facility] Last Admin: 05/26/16 04:17 Dose: 100 mls/hr Azithromycin 500 mg/ Sodium (Chloride) 250 mls @ 250 mls/hr IVPB DAILY@0600 [facility] Last Admin: 05/26/16 05:22 Dose: 250 mls/hr Vancomycin HCl 1 gm/ Sodium (Chloride) 250 mls @ 166.667 mls/hr IVPB Q12H [facility] Last Admin: 05/26/16 01:12 Dose: 166.667 mls/hr Micafungin Sodium 100 mg/ (Sodium Chloride) 100 mls @ 100 mls/hr IVPB DAILY [facility] Last Admin: 05/26/16 08:20 Dose: 100 mls/hr Insulin Human Regular (Humulin R) 0 units SC DAILY@0630 [facility] PRN Reason: Protocol Last Admin: 05/26/16 05:50 Dose: Not Given Lactobacillus Acidophilus (Bacid Acidophilus) 1 cap PO BID [facility] Last Admin: 05/26/16 08:19 Dose: 1 cap Lactulose (Enulose) 20 gm PO DAILY PRN PRN Reason: Constipation Last Admin: 05/23/16 18:56 Dose: 20 gm Metformin HCl (Glucophage) 500 mg PO BIDWM [facility] Last Admin: 05/26/16 08:15 Dose: 500 mg Pantoprazole Sodium (Protonix Ec Tab) 40 mg PO DAILY [facility] Last Admin: 05/26/16 08:19 Dose: 40 mg - Labs Labs: 05/25/16 07:16 05/26/16 06:30 PT 11.0 SECONDS (9.6-11.2) 05/18/16 08:04 INR 1.06 (0.92-1.08) 05/18/16 08:04 APTT 25.0 SECONDS (23.3-32.5) 05/18/16 08:04 Assessment and Plan - Assessment and Plan (Free Text) Plan: 70 yo male with history of DM2 and Hep C admitted at [facility] because of subacute CVA and bilateral lower lobe cavitary lesions. He was transferred to Acute Rehab for PT/OT. Left sided Subacute CVA physiatry consult with Dr Wallace continue Lipitor and ASA doing well with PT/OT Bibasal Cavitary Lesions to consider healthcare-associated pneumonia (with associated bronchiectasis) also need to rule out Sarcoidosis, fungal infection, lung abscess ID consult with Dr Lopes continue Vancomycin, Cefepime and Zithromax and Micafungin ECHO negative for vegetations; CRP is elevated to consider CT-guided biopsy of the lesions after treatment as per ID and teller manager Cough Hx HCAP bronchodilators added mucomyst DM II BS controlled Metformin 500mg BID Hepatitis C Follow up with PCP as outpatient Anemia/ thrombocytopenia Most likely anemia of chronic disease and ITP 6. DVT prophylaxis Lovenox 40mg SC daily
[2016-05-26] MEDS ORDERED: Potassium Chloride 20 mEq/15 ml LIQ UD PO ONE (10:00)
--- NOTE | 2016-05-26 10:33 | CP.PCM.CON ---
History of Present Illness - History of Present Illness History of Present Illness: pt is a 70 year old male admitted to [facility] and referred to the technical document writer for carl. Med Hx positive for a fall- then a tumor diagnosis. pt was unable to relate details or circumstances regarding his medical status. Other medical issues include Hep C. See medical record for additional medical information/ medications. Social History: pt lives with his . He reported having 6 children- two biological and the rest stepchildren. Pt had difficulty recalling where his children and grandchildren reside. Cognitive deficits evident on evaluation and "forgetfulness" reported by the patient prior to admission. He denied family tensions and reported family support. 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 Pt reported a history of alcohol abuse and drug abuse in his teenage years ?). He denied psychiatric treatment and a history of counseling. Pt spoke of frustration with rehab and the desire to return home. He acknowledged fears of climbing stairs- with strategies introduced to reduce distress./anxiety. MSE: pt alert, oriented to year, month, not day or date, affect constricted, mood dysphoric over stay. Pt spoke of looking forward to returning home, being satisfied and content at home, no si no hi ideation, no psychosis. 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) HX Cerebrovascular Accident: Yes - HEENT Hx HEENT Problems: No - RENAL Hx Chronic Kidney Disease: No - ENDOCRINE/METABOLIC Hx Diabetes Mellitus Type 2: Yes - HEMATOLOGICAL/ONCOLOGICAL Hx Blood Disorders: Yes Hx Hepatitis C: Yes - INTEGUMENTARY Hx Dermatological Problems: No - MUSCULOSKELETAL/RHEUMATOLOGICAL Hx Musculoskeletal Disorders: Yes Hx Falls: Yes (FREQUENT FALLING) Hx Unsteady Gait: Yes - GASTROINTESTINAL Hx Gastrointestinal Disorders: No - GENITOURINARY/GYNECOLOGICAL Hx Genitourinary Disorders: No - PSYCHIATRIC Hx Psychophysiologic Disorder: Yes (SMOKES CIGARETTES PPD,H/O DRINKING BEER DAILY) Hx Substance Use: No - SURGICAL HISTORY Hx Surgeries: No - ANESTHESIA Hx Anesthesia: No Meds Allergies/Adverse Reactions: Allergies Allergy/AdvReac Type Severity Reaction Status Date / Time No Known Allergies Allergy Verified 05/17/16 23:09 - Medications Medications: Current Medications Acetylcysteine (Acetylcysteine 20%) 2 ml INH RBID [facility] Albuterol/Ipratropium (Duoneb 3 Mg/0.5 Mg (3 Ml) Ud) 3 ml INH RQID [facility] Last Admin: 05/26/16 07:41 Dose: 3 ml Aspirin (Ecotrin) 81 mg PO DAILY [facility] Last Admin: 05/26/16 08:19 Dose: 81 mg Atorvastatin Calcium (Lipitor) 20 mg PO [facility] Last Admin: 05/25/16 21:07 Dose: 20 mg Docusate Sodium (Colace) 100 mg PO BID [facility] Last Admin: 05/26/16 08:16 Dose: 100 mg Enoxaparin Sodium (Lovenox) 40 mg SC DAILY@1700 [facility] PRN Reason: Protocol Last Admin: 05/25/16 17:04 Dose: 40 mg Ferrous Sulfate (Feosol) 325 mg PO BID [facility] Last Admin: 05/26/16 08:15 Dose: 325 mg Cefepime HCl 1 gm/ Sodium (Chloride) 100 mls @ 100 mls/hr IVPB Q12H [facility] Last Admin: 05/26/16 04:17 Dose: 100 mls/hr Azithromycin 500 mg/ Sodium (Chloride) 250 mls @ 250 mls/hr IVPB DAILY@0600 [facility] Last Admin: 05/26/16 05:22 Dose: 250 mls/hr Vancomycin HCl 1 gm/ Sodium (Chloride) 250 mls @ 166.667 mls/hr IVPB Q12H [facility] Last Admin: 05/26/16 01:12 Dose: 166.667 mls/hr Micafungin Sodium 100 mg/ (Sodium Chloride) 100 mls @ 100 mls/hr IVPB DAILY [facility] Last Admin: 05/26/16 08:20 Dose: 100 mls/hr Magnesium Sulfate (Magnesium Sulfate 2 Gm/50 Ml Water) 50 mls @ 50 mls/hr IVPB ONCE ONE PRN Reason: 2 GM/HR Stop: 05/26/16 10:59 Insulin Human Regular (Humulin R) 0 units SC DAILY@0630 [facility] PRN Reason: Protocol Last Admin: 05/26/16 05:50 Dose: Not Given Lactobacillus Acidophilus (Bacid Acidophilus) 1 cap PO BID [facility] Last Admin: 05/26/16 08:19 Dose: 1 cap Lactulose (Enulose) 20 gm PO DAILY PRN PRN Reason: Constipation Last Admin: 05/23/16 18:56 Dose: 20 gm Metformin HCl (Glucophage) 500 mg PO BIDWM [facility] Last Admin: 05/26/16 08:15 Dose: 500 mg Pantoprazole Sodium (Protonix Ec Tab) 40 mg PO DAILY [facility] Last Admin: 05/26/16 08:19 Dose: 40 mg Temazepam (Restoril) 15 mg PO HS PRN PRN Reason: Insomnia Results - Vital Signs Recent Vital Signs: Last Vital Signs Temp 97.5 F L 05/26/16 09:14 Pulse 90 05/26/16 09:14 Resp 20 05/26/16 09:14 BP 116/74 05/26/16 09:14 Pulse Ox 94 L 05/26/16 09:14 - Labs Result Diagrams: 05/25/16 07:16 05/26/16 06:30 Labs: Laboratory Results - last 24 hr 05/25/16 05/26/16 05/26/16 16:29 05:41 06:20 Sodium Potassium Chloride Carbon Dioxide Anion Gap BUN Creatinine Est GFR ( Amer) Est GFR (Non-Af Amer) POC Glucose (mg/dL) 90 62 L 98 Random Glucose Calcium 05/26/16 05/26/16 06:30 09:44 Sodium 145 Potassium 3.1 L Chloride 100 Carbon Dioxide 35 H Anion Gap 13 BUN 8 L Creatinine 0.3 L Est GFR ( Amer) > 60 Est GFR (Non-Af Amer) > 60 POC Glucose (mg/dL) 95 Random Glucose 78 Calcium 7.3 L
--- NOTE | 2016-05-26 11:56 | CP.PCM.PN ---
Subjective - Date & Time of Evaluation Date of Evaluation: 05/26/16 Time of Evaluation: 11:56 - Subjective Subjective: ID Note- Pt. seen and examined today. Pt. sitting up in his chair and eating his lunch. He is in good spirits and states he feels better and doing better with PT. denies any fever or chills , denies any sob Objective - Vital Signs/Intake and Output Vital Signs (last 24 hours): Temp Pulse Resp BP Pulse Ox 97.5 F L 90 20 116/74 94 L 05/26/16 09:14 05/26/16 09:14 05/26/16 09:14 05/26/16 09:14 05/26/16 09:14 - Medications Medications: Current Medications Acetylcysteine (Acetylcysteine 20%) 2 ml INH RBID [facility] Albuterol/Ipratropium (Duoneb 3 Mg/0.5 Mg (3 Ml) Ud) 3 ml INH RQID [facility] Last Admin: 05/26/16 07:41 Dose: 3 ml Aspirin (Ecotrin) 81 mg PO DAILY [facility] Last Admin: 05/26/16 08:19 Dose: 81 mg Atorvastatin Calcium (Lipitor) 20 mg PO HS [facility] Last Admin: 05/25/16 21:07 Dose: 20 mg Docusate Sodium (Colace) 100 mg PO BID [facility] Last Admin: 05/26/16 08:16 Dose: 100 mg Enoxaparin Sodium (Lovenox) 40 mg SC DAILY@1700 [facility] PRN Reason: Protocol Last Admin: 05/25/16 17:04 Dose: 40 mg Ferrous Sulfate (Feosol) 325 mg PO BID [facility] Last Admin: 05/26/16 08:15 Dose: 325 mg Cefepime HCl 1 gm/ Sodium (Chloride) 100 mls @ 100 mls/hr IVPB Q12H [facility] Last Admin: 05/26/16 04:17 Dose: 100 mls/hr Azithromycin 500 mg/ Sodium (Chloride) 250 mls @ 250 mls/hr IVPB DAILY@0600 [facility] Last Admin: 05/26/16 05:22 Dose: 250 mls/hr Vancomycin HCl 1 gm/ Sodium (Chloride) 250 mls @ 166.667 mls/hr IVPB Q12H [facility] Last Admin: 05/26/16 01:12 Dose: 166.667 mls/hr Micafungin Sodium 100 mg/ (Sodium Chloride) 100 mls @ 100 mls/hr IVPB DAILY [facility] Last Admin: 05/26/16 08:20 Dose: 100 mls/hr Insulin Human Regular (Humulin R) 0 units SC DAILY@0630 [facility] PRN Reason: Protocol Last Admin: 05/26/16 05:50 Dose: Not Given Lactobacillus Acidophilus (Bacid Acidophilus) 1 cap PO BID [facility] Last Admin: 05/26/16 08:19 Dose: 1 cap Lactulose (Enulose) 20 gm PO DAILY PRN PRN Reason: Constipation Last Admin: 05/23/16 18:56 Dose: 20 gm Metformin HCl (Glucophage) 500 mg PO BIDWM [facility] Last Admin: 05/26/16 08:15 Dose: 500 mg Pantoprazole Sodium (Protonix Ec Tab) 40 mg PO DAILY [facility] Last Admin: 05/26/16 08:19 Dose: 40 mg Temazepam (Restoril) 15 mg PO HS PRN PRN Reason: Insomnia - Labs Labs: - Additional Findings Additional findings: - Constitutional Appears: Non-toxic, No Acute Distress - Head Exam Head Exam: ATRAUMATIC - Eye Exam Eye Exam: EOMI, PERRL - ENT Exam ENT Exam: Normal Oropharynx - Neck Exam Neck exam: Positive for: Full Rom - Respiratory Exam Respiratory Exam: NORMAL BREATHING PATTERN Additional comments: no wheezing good aeration - Cardiovascular Exam Cardiovascular Exam: RRR, +S1, +S2 - GI/Abdominal Exam GI & Abdominal Exam: Normal Bowel Sounds, Soft Additional comments: NT, ND - Extremities Exam Extremities exam: Positive for: normal inspection - Neurological Exam Neurological exam: Alert, Oriented x 3 Laboratory Results - last 72 hr 05/19/16 05/23/16 05/23/16 09:30 10:31 15:50 WBC RBC Hgb Hct MCV MCH MCHC RDW Plt Count Sodium Potassium Chloride Carbon Dioxide Anion Gap BUN Creatinine Est GFR ( Amer) Est GFR (Non-Af Amer) POC Glucose (mg/dL) 83 Random Glucose Calcium Stool Occult Blood Negative TB Test (QFT) Nil 0.38 TB Test Mitogen - Nil 0.14 TB Test TB - Nil <0.00 TB Test (QFT) Indeterminate H 05/23/16 05/24/16 05/24/16 21:06 05:08 11:25 WBC RBC Hgb Hct MCV MCH MCHC RDW Plt Count Sodium Potassium Chloride Carbon Dioxide Anion Gap BUN Creatinine Est GFR ( Amer) Est GFR (Non-Af Amer) POC Glucose (mg/dL) 85 87 128 H Random Glucose Calcium Stool Occult Blood TB Test (QFT) Nil TB Test Mitogen - Nil TB Test TB - Nil TB Test (QFT) 05/25/16 05/25/16 05/25/16 05:48 07:16 16:29 WBC 3.9 L RBC 2.83 L Hgb 8.8 L Hct 25.9 L MCV 91.7 MCH 31.1 H MCHC 33.9 RDW 14.7 H Plt Count 137 Sodium Potassium Chloride Carbon Dioxide Anion Gap BUN Creatinine Est GFR ( Amer) Est GFR (Non-Af Amer) POC Glucose (mg/dL) 80 90 Random Glucose Calcium Stool Occult Blood TB Test (QFT) Nil TB Test Mitogen - Nil TB Test TB - Nil TB Test (QFT) 05/26/16 05/26/16 05/26/16 05:41 06:20 06:30 WBC RBC Hgb Hct MCV MCH MCHC RDW Plt Count Sodium 145 Potassium 3.1 L Chloride 100 Carbon Dioxide 35 H Anion Gap 13 BUN 8 L Creatinine 0.3 L Est GFR ( Amer) > 60 Est GFR (Non-Af Amer) > 60 POC Glucose (mg/dL) 62 L 98 Random Glucose 78 Calcium 7.3 L Stool Occult Blood TB Test (QFT) Nil TB Test Mitogen - Nil TB Test TB - Nil TB Test (QFT) 05/26/16 05/26/16 09:44 12:11 WBC RBC Hgb Hct MCV MCH MCHC RDW Plt Count Sodium 142 Potassium 3.7 Chloride 99 Carbon Dioxide 33 H Anion Gap 14 BUN 8 L Creatinine 0.4 L Est GFR ( Amer) > 60 Est GFR (Non-Af Amer) > 60 POC Glucose (mg/dL) 95 Random Glucose 83 Calcium 7.8 L Stool Occult Blood TB Test (QFT) Nil TB Test Mitogen - Nil TB Test TB - Nil TB Test (QFT) Microbiology 05/20/16 17:00 Sputum Induced Gram Stain - Final 05/20/16 17:00 Sputum Induced Sputum Culture - Final NORMAL ORAL SRAVANI 05/19/16 18:13 Sputum Gram Stain - Final 05/19/16 18:13 Sputum Sputum Culture - Final Accession No. : [id number] Patient Name / ID : ALBA MIJARES / [id number] Exam Date : 05/22/2016 17:32:34 ( Approved ) Study Comment : Sex / Age : M / 70Y Creator : Patel Bernstein MD Dictator : Patel Bernstein MD [place] Attacher : Senior [employer] Developer : Patel Bernstein MD Approver2 : Report Date : 05/23/2016 08:52:40 My Comment : PROCEDURE: CT Chest without contrast HISTORY: SOB COMPARISON: None. TECHNIQUE: Contiguous axial images were obtained through the chest without intravenous contrast enhancement. Sagittal and coronal reconstructions were performed. Radiation dose (DLP): 713.08 mGy-cm. FINDINGS: LUNGS: 9 mm nodule in right upper lobe (series 3, image 42). There is an ill-defined peribronchial opacity seen on series 3, image 50 through 53. This is in the anterior segment, right upper lobe. Uncertain significance. Vaguely rounded opacity, pleural-based, extending in a somewhat curvilinear fashion suggesting rounded atelectasis. Cannot rule out neoplasm. The rounded portion of this measures approximately 2.3 cm. . 6 mm subpleural nodule in superior segment right lower lobe (series 3, image 56). Calcified granuloma in right lower lobe ( series 3, image 76). Right lower lobe linear scar/atelectasis. Trace bilateral pleural effusion and minimal bilateral lower lobe compressive atelectasis. MEDIASTINUM: Mild aneurysmal dilatation of the ascending thoracic aorta to a diameter of 4.2 cm. Normal heart size. Left PICC catheter terminating in right atrium. Main pulmonary artery unremarkable. No vascular congestion. No lymphadenopathy. Unremarkable thyroid. Mild bilateral gynecomastia. PLEURA: Trace bilateral pleural effusion. BONES: No fracture. No destructive lesion. UPPER ABDOMEN: Grossly unremarkable. OTHER FINDINGS: None. IMPRESSION: Several pulmonary nodules as described, largest 9 mm. Vague peribronchial opacity, nonspecific, anterior right upper lobe. Curvilinear consolidation in left lower lobe, possibly rounded atelectasis versus neoplasm. 2.3 cm diameter. . Followup to exclude neoplasm. Given the size of the questionable mass in the left lower lobe and of the 9 mm right upper lobe nodule, consideration may be given to PET-CT evaluation. Alternatively, if the left lower lobe opacity resolves, follow-up may be performed as per Fleischner society criteria with noncontrast chest CT in 3 months. Aneurysmal dilatation of ascending thoracic aorta. Trace bilateral pleural effusion and lower lobe compressive atelectasis. No lymphadenopathy. Assessment and Plan (1) Stroke Status: Acute (2) Pulmonary cavitary lesion Status: Acute (3) Hepatitis C Status: Acute (4) Pulmonary nodule Status: Acute - Assessment and Plan (Free Text) Assessment: A/P- 70 year old amle with HCV, DM II, recetn stroke and incidental finding of lower lovbe cavitary lung lesions. at [facility] pt. seen by ID and was started empirically on abx to cover for HAP. Multiple small cavitary lesions in the lower lobes of both lungs, R/O septic emboli R/O endocarditis ( TTE no mention of any vegetations), R/O malignancy; unlikely TB (usually TB would have large apical cavity, would have mediastinal lymph node involvement, has no history of exposure, has no specific symptoms) Subacute left basal ganglia CVA hepatitis C DM history of brain tumor (which apparently resolved without specific treatment) remains afebrile mild leukopenia chronic slight thrombocytopenia could be secondary to his hep C. sputum cx- neg blood cx- neg chest Ct from05/22/2016- report read by radiologist noted, no mention of cavitary lesions, but mention of nodule and culvilinear lesion r/o neoplasm. 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 quantiferon Gold- Indeterminate Plan Patient has been started on Vancomycin and Cefepime and zithromax as per ID docs at [facility] since 05/12/2016. keep vanco trough <15. apparently beta- glucan levels were elevated at [facility] and pt. was also started on micafungin by ID doc there , day #11 galactomannan levels are pending blood cx- neg x 2 TTE- no mention of any vegetations as per reportt read by medical facilities section director. as per pulm pt. to have repeat chest CT in 1 week and if no improvement of the nodules and the LLL ? cavitary lesion he then definitely needds IR CT guided bx of these region to r/o malignancy vs mycobacterium vs fungal etiologies. Hep C treatment with Nursing Faculty as outpatient. All above d/w Hospitalist.
[2016-05-26 12:39] LABS: BLOOD UREA NITROGEN 8 mg/dl (9-20); CALCIUM 7.8 mg/dL (8.4-10.2); CARBON DIOXIDE 33 mmol/L (22-30); CHLORIDE 99 mmol/L (98-107); GFR AFRICAN-AMERICAN > 60; GLUCOSE,RANDOM 83 mg/dL (75-110); POTASSIUM 3.7 MMOL/L (3.6-5.0); SODIUM 142 mmol/l (132-148)
--- NOTE | 2016-05-26 12:55 | CP.PCM.PN ---
Subjective - Date & Time of Evaluation Date of Evaluation: 05/26/16 Time of Evaluation: 10:00 - Subjective Subjective: no acute complaints of neck or back pain Objective - Vital Signs/Intake and Output Vital Signs (last 24 hours): Temp Pulse Resp BP Pulse Ox 97.5 F L 90 20 116/74 94 L 05/26/16 09:14 05/26/16 09:14 05/26/16 09:14 05/26/16 09:14 05/26/16 09:14 - Medications Medications: Current Medications Acetylcysteine (Acetylcysteine 20%) 2 ml INH RBID [facility] Albuterol/Ipratropium (Duoneb 3 Mg/0.5 Mg (3 Ml) Ud) 3 ml INH RQID [facility] Last Admin: 05/26/16 11:55 Dose: Not Given Aspirin (Ecotrin) 81 mg PO DAILY [facility] Last Admin: 05/26/16 08:19 Dose: 81 mg Atorvastatin Calcium (Lipitor) 20 mg PO HS [facility] Last Admin: 05/25/16 21:07 Dose: 20 mg Docusate Sodium (Colace) 100 mg PO BID [facility] Last Admin: 05/26/16 08:16 Dose: 100 mg Enoxaparin Sodium (Lovenox) 40 mg SC DAILY@1700 [facility] PRN Reason: Protocol Last Admin: 05/25/16 17:04 Dose: 40 mg Ferrous Sulfate (Feosol) 325 mg PO BID [facility] Last Admin: 05/26/16 08:15 Dose: 325 mg Cefepime HCl 1 gm/ Sodium (Chloride) 100 mls @ 100 mls/hr IVPB Q12H [facility] Last Admin: 05/26/16 04:17 Dose: 100 mls/hr Azithromycin 500 mg/ Sodium (Chloride) 250 mls @ 250 mls/hr IVPB DAILY@0600 [facility] Last Admin: 05/26/16 05:22 Dose: 250 mls/hr Vancomycin HCl 1 gm/ Sodium (Chloride) 250 mls @ 166.667 mls/hr IVPB Q12H [facility] Last Admin: 05/26/16 01:12 Dose: 166.667 mls/hr Micafungin Sodium 100 mg/ (Sodium Chloride) 100 mls @ 100 mls/hr IVPB DAILY [facility] Last Admin: 05/26/16 08:20 Dose: 100 mls/hr Insulin Human Regular (Humulin R) 0 units SC DAILY@0630 [facility] PRN Reason: Protocol Last Admin: 05/26/16 05:50 Dose: Not Given Lactobacillus Acidophilus (Bacid Acidophilus) 1 cap PO BID [facility] Last Admin: 05/26/16 08:19 Dose: 1 cap Lactulose (Enulose) 20 gm PO DAILY PRN PRN Reason: Constipation Last Admin: 05/23/16 18:56 Dose: 20 gm Metformin HCl (Glucophage) 500 mg PO BIDWM [facility] Last Admin: 05/26/16 08:15 Dose: 500 mg Pantoprazole Sodium (Protonix Ec Tab) 40 mg PO DAILY [facility] Last Admin: 05/26/16 08:19 Dose: 40 mg Temazepam (Restoril) 15 mg PO HS PRN PRN Reason: Insomnia - Labs Labs: 05/25/16 07:16 05/26/16 12:11 PT 11.0 SECONDS (9.6-11.2) 05/18/16 08:04 INR 1.06 (0.92-1.08) 05/18/16 08:04 APTT 25.0 SECONDS (23.3-32.5) 05/18/16 08:04 - Head Exam Head Exam: ATRAUMATIC, NORMAL INSPECTION, NORMOCEPHALIC - Eye Exam Eye Exam: EOMI, Normal appearance, PERRL Pupil Exam: NORMAL ACCOMODATION - ENT Exam ENT Exam: Mucous Membranes Moist, Normal Exam - Respiratory Exam Respiratory Exam: NORMAL BREATHING PATTERN - Cardiovascular Exam Cardiovascular Exam: REGULAR RHYTHM - Rectal Exam Rectal Exam: NORMAL INSPECTION - Exam External exam: NORMAL EXTERNAL EXAM - Extremities Exam Extremities Exam: Normal Capillary Refill - Neurological Exam Neurological Exam: Alert, Awake Neuro motor strength exam: Left Upper Extremity: 3, Right Upper Extremity: 3, Left Lower Extremity: 3, Right Lower Extremity: 3 - Psychiatric Exam Psychiatric exam: Normal Affect, Normal Mood - Skin Skin Exam: Normal Color Assessment and Plan (1) Pulmonary cavitary lesion Status: Acute (2) Stroke Assessment & Plan: plan for physical, occupational, recreational, speech therapy discussed the need for IV continuation with Dr. Roper who will further follow up with ID At present monitor skin and vitals Status: Acute (3) Hepatitis C Status: Acute
[2016-05-26] MEDS: Enoxaparin 40 mg Syringe SC SCH (17:25)
[2016-05-26] MEDS: Acetylcysteine 20% Inhal Soln (4ml) INH SCH (20:24)
[2016-05-27] MEDS: Cefepime 1 GM in Sodium Chloride 0.9% 100 ML IVPB SCH ×2 (04:12→17:14)
[2016-05-27] MEDS: Azithromycin 500 MG in Sodium Chloride 0.9% 250 ML IVPB SCH (06:01)
[2016-05-27] MEDS: Insulin Regular 100 units/ml SC SCH (06:15)
[2016-05-27] MEDS: Acetylcysteine 20% Inhal Soln (4ml) INH SCH ×2 (07:39→19:24)
[2016-05-27] MEDS: Albuterol-Ipratrop 3 mg / 0.5 (3 ml) UD INH SCH ×4 (07:39→19:24)
[2016-05-27] MEDS: Micafungin 100 MG in Sodium Chloride 0.9% 100 ML IVPB SCH (08:31)
[2016-05-27] MEDS: Lactobacillus Acidophilus 500 MU Cap PO SCH ×2 (08:31→17:14)
[2016-05-27] MEDS: Pantoprazole 40 mg EC Tab PO SCH (08:31)
[2016-05-27 09:52] LABS: BLOOD UREA NITROGEN 6 mg/dl (9-20); CALCIUM 7.9 mg/dL (8.4-10.2); CARBON DIOXIDE 33 mmol/L (22-30); CHLORIDE 102 mmol/L (98-107); GFR AFRICAN-AMERICAN > 60; GLUCOSE,RANDOM 115 mg/dL (75-110); MAGNESIUM 1.5 MG/DL (1.6-2.3); POTASSIUM 3.2 MMOL/L (3.6-5.0); SODIUM 145 mmol/l (132-148)
[2016-05-27] MEDS ORDERED: Potassium Chloride 20 mEq/15 ml LIQ UD PO ONE (14:00)
[2016-05-27] MEDS: Enoxaparin 40 mg Syringe SC SCH (17:15)
[2016-05-28] MEDS: Cefepime 1 GM in Sodium Chloride 0.9% 100 ML IVPB SCH ×2 (05:06→17:27)
[2016-05-28] MEDS: Azithromycin 500 MG in Sodium Chloride 0.9% 250 ML IVPB SCH (06:21)
[2016-05-28] MEDS: Insulin Regular 100 units/ml SC SCH (06:28)
[2016-05-28] MEDS: Albuterol-Ipratrop 3 mg / 0.5 (3 ml) UD INH SCH ×4 (07:19→19:16)
[2016-05-28] MEDS: Acetylcysteine 20% Inhal Soln (4ml) INH SCH ×2 (07:19→19:15)
[2016-05-28] MEDS: Pantoprazole 40 mg EC Tab PO SCH (08:21)
[2016-05-28 08:22] LABS: BLOOD UREA NITROGEN 6 mg/dl (9-20); CALCIUM 7.7 mg/dL (8.4-10.2); CARBON DIOXIDE 39 mmol/L (22-30); CHLORIDE 98 mmol/L (98-107); GFR AFRICAN-AMERICAN > 60; GLUCOSE,RANDOM 93 mg/dL (75-110); MAGNESIUM 1.5 MG/DL (1.6-2.3); POTASSIUM 3.4 MMOL/L (3.6-5.0); SODIUM 145 mmol/l (132-148)
[2016-05-28] MEDS: Lactobacillus Acidophilus 500 MU Cap PO SCH ×2 (08:24→17:02)
[2016-05-28] MEDS: Micafungin 100 MG in Sodium Chloride 0.9% 100 ML IVPB SCH (08:25)
[2016-05-28 11:47] LABS: HEMATOCRIT 28.2 % (35.0-51.0); MEAN CELL VOLUME 92.5 fl (80.0-94.0); MEAN CORPUSCULAR HEMOGLOBIN 30.5 pg (27.0-31.0); MEAN CORPUSCULAR HGB CONC 32.9 g/dL (33.0-37.0); WHITE BLOOD COUNT 4.2 K/uL (4.8-10.8)
[2016-05-28] MEDS: Enoxaparin 40 mg Syringe SC SCH (17:04)
[2016-05-29] MEDS: Cefepime 1 GM in Sodium Chloride 0.9% 100 ML IVPB SCH ×2 (04:24→16:54)
[2016-05-29] MEDS: Azithromycin 500 MG in Sodium Chloride 0.9% 250 ML IVPB SCH (05:40)
[2016-05-29] MEDS: Insulin Regular 100 units/ml SC SCH (07:02)
[2016-05-29] MEDS: Albuterol-Ipratrop 3 mg / 0.5 (3 ml) UD INH SCH ×4 (07:31→19:57)
[2016-05-29] MEDS: Acetylcysteine 20% Inhal Soln (4ml) INH SCH ×2 (07:31→19:57)
[2016-05-29] MEDS: Micafungin 100 MG in Sodium Chloride 0.9% 100 ML IVPB SCH (08:47)
[2016-05-29] MEDS: Lactobacillus Acidophilus 500 MU Cap PO SCH ×2 (08:50→16:55)
[2016-05-29] MEDS: Pantoprazole 40 mg EC Tab PO SCH (08:51)
--- NOTE | 2016-05-29 11:05 | CP.PCM.PN ---
Subjective - Date & Time of Evaluation Date of Evaluation: 05/29/16 Time of Evaluation: 11:04 - Subjective Subjective: pt doing well cough improving no complaints good spirits tolerating physical therapy occ therapy well VSS. NAD. plan for IV abx - per ID, repeat CT TOMORROW non contrast. Pending results, will get CT Bx by IR of cavitary lesion abutting pleura LLL if unimproved. Pt still needs repeat CT in 3 months for other nodules. Pt to follow up with Dr. Barkley in [facility], information below. Objective - Vital Signs/Intake and Output Vital Signs (last 24 hours): Temp Pulse Resp BP Pulse Ox 98.4 F 109 H 20 131/55 L 94 L 05/29/16 09:23 05/29/16 09:23 05/29/16 09:23 05/29/16 09:23 05/29/16 09:23 GEN: WDWN, alert, cooperative HEENT: NCAT, PERRL, EOMI Neck: supple, no lymphadenopathy CARDIO: +S1S2, RRR, NO M/R/G LUNG: CTAB, NO W/R/R ABD: soft, NT, ND, no masses, no HSM EXT: no edema, pedal pulses Neuro: AAOx3, Sensation equal, bilateral UE/LE Psych: normal mood, normal affect - Medications Medications: Current Medications Acetylcysteine (Acetylcysteine 20%) 2 ml INH RBID [facility] Last Admin: 05/29/16 07:31 Dose: 2 ml Albuterol/Ipratropium (Duoneb 3 Mg/0.5 Mg (3 Ml) Ud) 3 ml INH RQID [facility] Last Admin: 05/29/16 11:03 Dose: 3 ml Aspirin (Ecotrin) 81 mg PO DAILY [facility] Last Admin: 05/29/16 08:51 Dose: 81 mg Atorvastatin Calcium (Lipitor) 20 mg PO HS [facility] Last Admin: 05/28/16 21:02 Dose: 20 mg Docusate Sodium (Colace) 100 mg PO BID [facility] Last Admin: 05/29/16 08:51 Dose: 100 mg Enoxaparin Sodium (Lovenox) 40 mg SC DAILY@1700 [facility] PRN Reason: Protocol Last Admin: 05/28/16 17:04 Dose: 40 mg Ferrous Sulfate (Feosol) 325 mg PO BID [facility] Last Admin: 05/29/16 08:50 Dose: 325 mg Cefepime HCl 1 gm/ Sodium (Chloride) 100 mls @ 100 mls/hr IVPB Q12H [facility] Last Admin: 05/29/16 04:24 Dose: 100 mls/hr Azithromycin 500 mg/ Sodium (Chloride) 250 mls @ 250 mls/hr IVPB DAILY@0600 [facility] Last Admin: 05/29/16 05:40 Dose: 250 mls/hr Vancomycin HCl 1 gm/ Sodium (Chloride) 250 mls @ 166.667 mls/hr IVPB Q12H [facility] Last Admin: 05/29/16 01:03 Dose: 166.667 mls/hr Micafungin Sodium 100 mg/ (Sodium Chloride) 100 mls @ 100 mls/hr IVPB DAILY [facility] Last Admin: 05/29/16 08:47 Dose: 100 mls/hr Insulin Human Regular (Humulin R) 0 units SC DAILY@0630 [facility] PRN Reason: Protocol Last Admin: 05/29/16 07:02 Dose: Not Given Lactobacillus Acidophilus (Bacid Acidophilus) 1 cap PO BID [facility] Last Admin: 05/29/16 08:50 Dose: 1 cap Lactulose (Enulose) 20 gm PO DAILY PRN PRN Reason: Constipation Last Admin: 05/23/16 18:56 Dose: 20 gm Metformin HCl (Glucophage) 500 mg PO BIDWM [facility] Last Admin: 05/29/16 08:51 Dose: 500 mg Pantoprazole Sodium (Protonix Ec Tab) 40 mg PO DAILY [facility] Last Admin: 05/29/16 08:51 Dose: 40 mg Temazepam (Restoril) 15 mg PO HS PRN PRN Reason: Insomnia Last Admin: 05/28/16 21:02 Dose: 15 mg - Labs Labs: 05/28/16 11:30 05/28/16 05:30 PT 11.0 SECONDS (9.6-11.2) 05/18/16 08:04 INR 1.06 (0.92-1.08) 05/18/16 08:04 APTT 25.0 SECONDS (23.3-32.5) 05/18/16 08:04 Assessment and Plan - Assessment and Plan (Free Text) Plan: 70 yo male with history of DM2 and Hep C admitted at [facility] because of subacute CVA and bilateral lower lobe cavitary lesions. He was transferred to Acute Rehab for PT/OT. Left sided Subacute CVA physiatry consult with Dr Wallace continue Lipitor and ASA doing well with PT/OT Bibasal Cavitary Lesions Pulmonology consult appreciated and followed - will repeat CT TOMORROW and if does not show improvement will get IR to CT of lesion abutting plura in LLL bx to determine subsequent treatment and plan. - He also needs a repeat CT scan in 3 months as outpatient, to assess the nature of other nodules. - Pulm also recommend a BURAK to r/o IE with septic embolization. - Pt can follow up with Dr. Barkley at his office in [place], office at: [phone] Lopes continue Vancomycin, Cefepime and Zithromax and Micafungin per ID. 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 DVT prophylaxis Lovenox 40mg SC daily
[2016-05-29] MEDS: Enoxaparin 40 mg Syringe SC SCH (16:55)
[2016-05-30] MEDS: Cefepime 1 GM in Sodium Chloride 0.9% 100 ML IVPB SCH ×2 (04:12→17:08)
[2016-05-30] MEDS: Azithromycin 500 MG in Sodium Chloride 0.9% 250 ML IVPB SCH (06:03)
[2016-05-30] MEDS: Insulin Regular 100 units/ml SC SCH (06:04)
[2016-05-30] MEDS: Acetylcysteine 20% Inhal Soln (4ml) INH SCH ×2 (07:28→20:08)
[2016-05-30] MEDS: Albuterol-Ipratrop 3 mg / 0.5 (3 ml) UD INH SCH ×4 (07:28→20:09)
[2016-05-30] MEDS: Micafungin 100 MG in Sodium Chloride 0.9% 100 ML IVPB SCH (08:46)
[2016-05-30] MEDS: Lactobacillus Acidophilus 500 MU Cap PO SCH ×2 (08:47→17:12)
[2016-05-30] MEDS: Pantoprazole 40 mg EC Tab PO SCH (08:47)
--- NOTE | 2016-05-30 12:56 | CP.PCM.PN ---
Subjective - Date & Time of Evaluation Date of Evaluation: 05/30/16 Time of Evaluation: 12:56 - Subjective Subjective: Id Note- Pt. seen and examined today. Pt. sitting in his chair and denies any sob, denies any chills. repeat chest Ct today. Objective - Vital Signs/Intake and Output Vital Signs (last 24 hours): Temp Pulse Resp BP Pulse Ox 97.3 F L 100 H 20 117/74 97 05/30/16 09:47 05/30/16 09:47 05/30/16 09:47 05/30/16 09:47 05/30/16 09:47 - Medications Medications: Current Medications Acetylcysteine (Acetylcysteine 20%) 2 ml INH RBID [facility] Last Admin: 05/30/16 07:28 Dose: 2 ml Albuterol/Ipratropium (Duoneb 3 Mg/0.5 Mg (3 Ml) Ud) 3 ml INH RQID [facility] Last Admin: 05/30/16 11:22 Dose: 3 ml Aspirin (Ecotrin) 81 mg PO DAILY [facility] Last Admin: 05/30/16 08:47 Dose: 81 mg Atorvastatin Calcium (Lipitor) 20 mg PO HS [facility] Last Admin: 05/29/16 21:10 Dose: 20 mg Docusate Sodium (Colace) 100 mg PO BID [facility] Last Admin: 05/30/16 08:47 Dose: 100 mg Enoxaparin Sodium (Lovenox) 40 mg SC DAILY@1700 [facility] PRN Reason: Protocol Last Admin: 05/29/16 16:55 Dose: 40 mg Ferrous Sulfate (Feosol) 325 mg PO BID [facility] Last Admin: 05/30/16 08:47 Dose: 325 mg Cefepime HCl 1 gm/ Sodium (Chloride) 100 mls @ 100 mls/hr IVPB Q12H [facility] Last Admin: 05/30/16 04:12 Dose: 100 mls/hr Azithromycin 500 mg/ Sodium (Chloride) 250 mls @ 250 mls/hr IVPB DAILY@0600 [facility] Last Admin: 05/30/16 06:03 Dose: 250 mls/hr Vancomycin HCl 1 gm/ Sodium (Chloride) 250 mls @ 166.667 mls/hr IVPB Q12H [facility] Last Admin: 05/30/16 01:34 Dose: 166.667 mls/hr Micafungin Sodium 100 mg/ (Sodium Chloride) 100 mls @ 100 mls/hr IVPB DAILY [facility] Last Admin: 05/30/16 08:46 Dose: 100 mls/hr Insulin Human Regular (Humulin R) 0 units SC DAILY@0630 [facility] PRN Reason: Protocol Last Admin: 05/30/16 06:04 Dose: Not Given Lactobacillus Acidophilus (Bacid Acidophilus) 1 cap PO BID [facility] Last Admin: 05/30/16 08:47 Dose: 1 cap Lactulose (Enulose) 20 gm PO DAILY PRN PRN Reason: Constipation Last Admin: 05/23/16 18:56 Dose: 20 gm Metformin HCl (Glucophage) 500 mg PO BIDWM [facility] Last Admin: 05/30/16 08:47 Dose: 500 mg Pantoprazole Sodium (Protonix Ec Tab) 40 mg PO DAILY [facility] Last Admin: 05/30/16 08:47 Dose: 40 mg Temazepam (Restoril) 15 mg PO HS PRN PRN Reason: Insomnia Last Admin: 05/29/16 21:10 Dose: 15 mg - Labs Labs: - Additional Findings Additional findings: - Additional Findings Additional findings: - Constitutional Appears: Non-toxic, No Acute Distress - Head Exam Head Exam: ATRAUMATIC - Eye Exam Eye Exam: EOMI, PERRL - ENT Exam ENT Exam: Normal Oropharynx - Neck Exam Neck exam: Positive for: Full Rom - Respiratory Exam Respiratory Exam: NORMAL BREATHING PATTERN Additional comments: no wheezing good aeration - Cardiovascular Exam Cardiovascular Exam: RRR, +S1, +S2 - GI/Abdominal Exam GI & Abdominal Exam: Normal Bowel Sounds, Soft Additional comments: NT, ND - Extremities Exam Extremities exam: Positive for: normal inspection - Neurological Exam Neurological exam: Alert, Oriented x 3 Laboratory Results - last 72 hr 05/28/16 05/28/16 05/28/16 05:14 05:30 11:30 WBC 4.2 L RBC 3.05 L Hgb 9.3 L Hct 28.2 L MCV 92.5 MCH 30.5 MCHC 32.9 L RDW 15.0 H Plt Count 192 Sodium 145 Potassium 3.4 L Chloride 98 Carbon Dioxide 39 H Anion Gap 11 BUN 6 L Creatinine 0.4 L Est GFR ( Amer) > 60 Est GFR (Non-Af Amer) > 60 POC Glucose (mg/dL) 109 Random Glucose 93 Calcium 7.7 L Magnesium 1.5 L 03/27/17 03/28/17 04:59 05:05 WBC RBC Hgb Hct MCV MCH MCHC RDW Plt Count Sodium Potassium Chloride Carbon Dioxide Anion Gap BUN Creatinine Est GFR ( Amer) Est GFR (Non-Af Amer) POC Glucose (mg/dL) 91 88 Random Glucose Calcium Magnesium Microbiology 05/26/16 08:55 Blood-Venous Blood Culture - Preliminary NO GROWTH AFTER 3 DAYS 05/26/16 09:00 Blood-Venous Blood Culture - Preliminary NO GROWTH AFTER 3 DAYS 05/20/16 17:00 Sputum Induced Gram Stain - Final 05/20/16 17:00 Sputum Induced Sputum Culture - Final NORMAL ORAL SRAVANI 05/19/16 18:13 Sputum Gram Stain - Final 05/19/16 18:13 Sputum Sputum Culture - Final Accession No. : [id number] Patient Name / ID : ALBA MIJARES / [id number] Exam Date : 05/30/2016 12:37:16 ( Approved ) Study Comment : Sex / Age : M / 70Y Creator : Rosie Zafar Dictator : Rosie Zafar Plumbing Service Technician : Plant Attendant Or Assistant Operator : Rosie Zafar Approver2 : Report Date : 05/30/2016 14:07:09 My Comment : PROCEDURE: CT Chest without contrast HISTORY: follow up of cavitary lesions COMPARISON: Comparison is made to the previous study dated 05/22/2016 TECHNIQUE: Contiguous axial images were obtained through the chest without intravenous contrast enhancement. Sagittal and coronal reconstructions were performed. Radiation dose (DLP): 710.86 mGy-cm. FINDINGS: LUNGS: Again seen is 2 x 2.1 centimeter nodule/mass at the superior segment of the left lower lobe. Also again seen is 3 x 2.4 centimeter pleural base mass at the right lung base is. Again seen is 9 millimeter nodule at the right lung upper lobe. There is interval worsening of hazy/ ground-glass opacity at the right upper lobe associated with peribronchial density and slight bronchiectasis. There are bilateral central mild bronchiectasis seen. Small reticulonodular opacities at the lower lobe/lung bases are also noted more prominent compared to the previous exam. MEDIASTINUM: The thoracic aorta is ectatic and tortuous. Normal sized heart. Main pulmonary artery is prmmax-pp-cyyyofvwoz enlarged. No lymphadenopathy. PLEURA: Trace/small bilateral pleural effusions and pleural thickening seen. BONES: No fracture. No destructive lesion. UPPER ABDOMEN: Grossly unremarkable. OTHER FINDINGS: None. IMPRESSION: Persistent bilateral lower lobes soft tissue mass lesions. Persistent 9 millimeter nodule at the right upper lobe. Interval worsening of hazy opacity/ ground-glass opacity at the right upper lobe since the previous exam. Mild bilateral central bronchiectasis. The possibility of neoplasm should be considered. The differential diagnosis includes less likely multifocal pneumonia. Small bilateral pleural effusions. Pnmxgr-am-zeibzmlepo enlarged main pulmonary artery suggestive of pulmonary hypertension. Assessment and Plan (1) Stroke Status: Acute (2) Pulmonary cavitary lesion Status: Acute (3) Hepatitis C Status: Acute (4) Pulmonary nodule Status: Acute - Assessment and Plan (Free Text) Assessment: - Assessment and Plan (Free Text) Assessment: A/P- 70 year old amle with HCV, DM II, recetn stroke and incidental finding of lower lovbe cavitary lung lesions. at [place] pt. seen by ID and was started empirically on abx to cover for HAP. Multiple small cavitary lesions in the lower lobes of both lungs, R/O septic emboli R/O endocarditis ( TTE no mention of any vegetations), R/O malignancy; unlikely TB (usually TB would have large apical cavity, would have mediastinal lymph node involvement, has no history of exposure, has no specific symptoms) Subacute left basal ganglia CVA hepatitis C DM history of brain tumor (which apparently resolved without specific treatment) remains afebrile mild leukopenia chronic sputum cx- neg blood cx- neg x [address] from 05/30/2016 noted , as per radiologist' report not much improvemnt in the nodular lesions and r/o maliganncy. [employer] rep conuslt noted noted as well and he rec BURAK r/o IE and if negative Ct guided bx oft he pulm nodule for further evaluation. quantiferon Gold- Indeterminate Plan Patient has been started on Vancomycin and Cefepime and zithromax as per ID docs at [place] since 05/12/2016. keep vanco trough <15. apparently beta- glucan levels were elevated at [place] and pt. was also started on micafungin by ID doc there , day #15 galactomannan levels are pending blood cx- neg x 2 TTE- no mention of any vegetations as per reportt read by cistern room operator. repeat chest Ct done today and as per report not much improvement of the nodules and the LLL ? cavitary lesion he then definitely needs IR CT guided bx of these region to r/o malignancy vs ID etiology. Hep C eval and treatment with Information Services Vice President as outpatient. All above d/w Hospitalist .
--- NOTE | 2016-05-30 14:12 | CT ---
PROCEDURE: CT Chest without contrast HISTORY: follow up of cavitary lesions COMPARISON: Comparison is made to the previous study dated 05/22/2016 TECHNIQUE: Contiguous axial images were obtained through the chest without intravenous contrast enhancement. Sagittal and coronal reconstructions were performed. Radiation dose (DLP): 710.86 mGy-cm. FINDINGS: LUNGS: Again seen is 2 x 2.1 centimeter nodule/mass at the superior segment of the left lower lobe. Also again seen is 3 x 2.4 centimeter pleural base mass at the right lung base is. Again seen is 9 millimeter nodule at the right lung upper lobe. There is interval worsening of hazy/ ground-glass opacity at the right upper lobe associated with peribronchial density and slight bronchiectasis. There are bilateral central mild bronchiectasis seen. Small reticulonodular opacities at the lower lobe/lung bases are also noted more prominent compared to the previous exam. MEDIASTINUM: The thoracic aorta is ectatic and tortuous. Normal sized heart. Main pulmonary artery is cajhhi-tj-tgvknyocgu enlarged. No lymphadenopathy. PLEURA: Trace/small bilateral pleural effusions and pleural thickening seen. BONES: No fracture. No destructive lesion. UPPER ABDOMEN: Grossly unremarkable. OTHER FINDINGS: None. IMPRESSION: Persistent bilateral lower lobes soft tissue mass lesions. Persistent 9 millimeter nodule at the right upper lobe. Interval worsening of hazy opacity/ ground-glass opacity at the right upper lobe since the previous exam. Mild bilateral central bronchiectasis. The possibility of neoplasm should be considered. The differential diagnosis includes less likely multifocal pneumonia. Small bilateral pleural effusions. Gbesak-oy-cxflvsurpb enlarged main pulmonary artery suggestive of pulmonary hypertension.
--- NOTE | 2016-05-30 14:43 | CP.PCM.PN ---
Subjective - Date & Time of Evaluation Date of Evaluation: 05/28/16 Time of Evaluation: 13:30 - Subjective Subjective: no acute complaints at present Objective - Vital Signs/Intake and Output Vital Signs (last 24 hours): Temp Pulse Resp BP Pulse Ox 97.3 F L 100 H 20 117/74 97 05/30/16 09:47 05/30/16 09:47 05/30/16 09:47 05/30/16 09:47 05/30/16 09:47 - Medications Medications: Current Medications Acetylcysteine (Acetylcysteine 20%) 2 ml INH RBID [facility] Last Admin: 05/30/16 07:28 Dose: 2 ml Albuterol/Ipratropium (Duoneb 3 Mg/0.5 Mg (3 Ml) Ud) 3 ml INH RQID [facility] Last Admin: 05/30/16 11:22 Dose: 3 ml Aspirin (Ecotrin) 81 mg PO DAILY [facility] Last Admin: 05/30/16 08:47 Dose: 81 mg Atorvastatin Calcium (Lipitor) 20 mg PO HS [facility] Last Admin: 05/29/16 21:10 Dose: 20 mg Docusate Sodium (Colace) 100 mg PO BID [facility] Last Admin: 05/30/16 08:47 Dose: 100 mg Enoxaparin Sodium (Lovenox) 40 mg SC DAILY@1700 [facility] PRN Reason: Protocol Last Admin: 05/29/16 16:55 Dose: 40 mg Ferrous Sulfate (Feosol) 325 mg PO BID [facility] Last Admin: 05/30/16 08:47 Dose: 325 mg Cefepime HCl 1 gm/ Sodium (Chloride) 100 mls @ 100 mls/hr IVPB Q12H [facility] Last Admin: 05/30/16 04:12 Dose: 100 mls/hr Azithromycin 500 mg/ Sodium (Chloride) 250 mls @ 250 mls/hr IVPB DAILY@0600 [facility] Last Admin: 05/30/16 06:03 Dose: 250 mls/hr Vancomycin HCl 1 gm/ Sodium (Chloride) 250 mls @ 166.667 mls/hr IVPB Q12H [facility] Last Admin: 05/30/16 13:28 Dose: 166.667 mls/hr Micafungin Sodium 100 mg/ (Sodium Chloride) 100 mls @ 100 mls/hr IVPB DAILY [facility] Last Admin: 05/30/16 08:46 Dose: 100 mls/hr Insulin Human Regular (Humulin R) 0 units SC DAILY@0630 [facility] PRN Reason: Protocol Last Admin: 05/30/16 06:04 Dose: Not Given Lactobacillus Acidophilus (Bacid Acidophilus) 1 cap PO BID [facility] Last Admin: 05/30/16 08:47 Dose: 1 cap Lactulose (Enulose) 20 gm PO DAILY PRN PRN Reason: Constipation Last Admin: 05/23/16 18:56 Dose: 20 gm Metformin HCl (Glucophage) 500 mg PO BIDWM [facility] Last Admin: 05/30/16 08:47 Dose: 500 mg Pantoprazole Sodium (Protonix Ec Tab) 40 mg PO DAILY [facility] Last Admin: 05/30/16 08:47 Dose: 40 mg Temazepam (Restoril) 15 mg PO HS PRN PRN Reason: Insomnia Last Admin: 05/29/16 21:10 Dose: 15 mg - Labs Labs: 05/28/16 11:30 05/28/16 05:30 PT 11.0 SECONDS (9.6-11.2) 05/18/16 08:04 INR 1.06 (0.92-1.08) 05/18/16 08:04 APTT 25.0 SECONDS (23.3-32.5) 05/18/16 08:04 - Head Exam Head Exam: ATRAUMATIC, NORMAL INSPECTION, NORMOCEPHALIC - Eye Exam Eye Exam: EOMI, Normal appearance, PERRL Pupil Exam: NORMAL ACCOMODATION - ENT Exam ENT Exam: Mucous Membranes Moist, Normal Exam - Respiratory Exam Respiratory Exam: NORMAL BREATHING PATTERN - Cardiovascular Exam Cardiovascular Exam: REGULAR RHYTHM - GI/Abdominal Exam GI & Abdominal Exam: Normal Bowel Sounds - Rectal Exam Rectal Exam: NORMAL INSPECTION - Exam External exam: NORMAL EXTERNAL EXAM - Extremities Exam Extremities Exam: Normal Capillary Refill, Normal Inspection - Back Exam Back Exam: NORMAL INSPECTION - Neurological Exam Neurological Exam: Alert, Awake Neuro motor strength exam: Left Upper Extremity: 3, Right Upper Extremity: 3, Left Lower Extremity: 3, Right Lower Extremity: 3 - Psychiatric Exam Psychiatric exam: Normal Affect, Normal Mood - Skin Skin Exam: Dry, Normal Color Assessment and Plan (1) Pulmonary cavitary lesion Status: Acute (2) Stroke Assessment & Plan: physical, occupational,rec therapy Status: Acute (3) Hepatitis C Status: Acute
--- NOTE | 2016-05-30 15:13 | CP.PCM.PN ---
Subjective - Date & Time of Evaluation Date of Evaluation: 05/30/16 Time of Evaluation: 09:00 - Subjective Subjective: no acute complaints at present Objective - Vital Signs/Intake and Output Vital Signs (last 24 hours): Temp Pulse Resp BP Pulse Ox 97.3 F L 100 H 20 117/74 97 05/30/16 09:47 05/30/16 09:47 05/30/16 09:47 05/30/16 09:47 05/30/16 09:47 - Medications Medications: Current Medications Acetylcysteine (Acetylcysteine 20%) 2 ml INH RBID [facility] Last Admin: 05/30/16 07:28 Dose: 2 ml Albuterol/Ipratropium (Duoneb 3 Mg/0.5 Mg (3 Ml) Ud) 3 ml INH RQID [facility] Last Admin: 05/30/16 11:22 Dose: 3 ml Aspirin (Ecotrin) 81 mg PO DAILY [facility] Last Admin: 05/30/16 08:47 Dose: 81 mg Atorvastatin Calcium (Lipitor) 20 mg PO HS [facility] Last Admin: 05/29/16 21:10 Dose: 20 mg Docusate Sodium (Colace) 100 mg PO BID [facility] Last Admin: 05/30/16 08:47 Dose: 100 mg Enoxaparin Sodium (Lovenox) 40 mg SC DAILY@1700 [facility] PRN Reason: Protocol Last Admin: 05/29/16 16:55 Dose: 40 mg Ferrous Sulfate (Feosol) 325 mg PO BID [facility] Last Admin: 05/30/16 08:47 Dose: 325 mg Cefepime HCl 1 gm/ Sodium (Chloride) 100 mls @ 100 mls/hr IVPB Q12H [facility] Last Admin: 05/30/16 04:12 Dose: 100 mls/hr Azithromycin 500 mg/ Sodium (Chloride) 250 mls @ 250 mls/hr IVPB DAILY@0600 [facility] Last Admin: 05/30/16 06:03 Dose: 250 mls/hr Vancomycin HCl 1 gm/ Sodium (Chloride) 250 mls @ 166.667 mls/hr IVPB Q12H [facility] Last Admin: 05/30/16 13:28 Dose: 166.667 mls/hr Micafungin Sodium 100 mg/ (Sodium Chloride) 100 mls @ 100 mls/hr IVPB DAILY [facility] Last Admin: 05/30/16 08:46 Dose: 100 mls/hr Insulin Human Regular (Humulin R) 0 units SC DAILY@0630 [facility] PRN Reason: Protocol Last Admin: 05/30/16 06:04 Dose: Not Given Lactobacillus Acidophilus (Bacid Acidophilus) 1 cap PO BID [facility] Last Admin: 05/30/16 08:47 Dose: 1 cap Lactulose (Enulose) 20 gm PO DAILY PRN PRN Reason: Constipation Last Admin: 05/23/16 18:56 Dose: 20 gm Metformin HCl (Glucophage) 500 mg PO BIDWM [facility] Last Admin: 05/30/16 08:47 Dose: 500 mg Pantoprazole Sodium (Protonix Ec Tab) 40 mg PO DAILY [facility] Last Admin: 05/30/16 08:47 Dose: 40 mg Temazepam (Restoril) 15 mg PO HS PRN PRN Reason: Insomnia Last Admin: 05/29/16 21:10 Dose: 15 mg - Labs Labs: 05/28/16 11:30 05/28/16 05:30 PT 11.0 SECONDS (9.6-11.2) 05/18/16 08:04 INR 1.06 (0.92-1.08) 05/18/16 08:04 APTT 25.0 SECONDS (23.3-32.5) 05/18/16 08:04 - Head Exam Head Exam: ATRAUMATIC, NORMAL INSPECTION, NORMOCEPHALIC - Eye Exam Eye Exam: EOMI, Normal appearance, PERRL Pupil Exam: NORMAL ACCOMODATION - ENT Exam ENT Exam: Mucous Membranes Moist, Normal Exam - Respiratory Exam Respiratory Exam: NORMAL BREATHING PATTERN - Cardiovascular Exam Cardiovascular Exam: REGULAR RHYTHM - GI/Abdominal Exam GI & Abdominal Exam: Normal Bowel Sounds - Rectal Exam Rectal Exam: NORMAL INSPECTION - Exam Exam: NORMAL INSPECTION - Extremities Exam Extremities Exam: Full ROM, Normal Capillary Refill - Neurological Exam Neurological Exam: Alert, Awake Neuro motor strength exam: Left Upper Extremity: 3, Right Upper Extremity: 3, Left Lower Extremity: 3, Right Lower Extremity: 3 - Psychiatric Exam Psychiatric exam: Normal Affect, Normal Mood - Skin Skin Exam: Dry Assessment and Plan (1) Pulmonary cavitary lesion Status: Acute (2) Stroke Assessment & Plan: physcial, occupational,rec therapy team conference for tomorrow monitor skin and vitals Status: Acute (3) Hepatitis C Status: Acute
[2016-05-30] MEDS: Enoxaparin 40 mg Syringe SC SCH (17:13)
[2016-05-30 20:17] VITALS: RESP 20
[2016-05-31] MEDS: Cefepime 1 GM in Sodium Chloride 0.9% 100 ML IVPB SCH (05:22)
[2016-05-31] MEDS: Azithromycin 500 MG in Sodium Chloride 0.9% 250 ML IVPB SCH (06:34)
[2016-05-31] MEDS: Acetylcysteine 20% Inhal Soln (4ml) INH SCH (07:27)
[2016-05-31] MEDS: Albuterol-Ipratrop 3 mg / 0.5 (3 ml) UD INH SCH ×2 (07:27→11:01)
[2016-05-31] MEDS: Insulin Regular 100 units/ml SC SCH (07:37)
[2016-05-31] MEDS: Micafungin 100 MG in Sodium Chloride 0.9% 100 ML IVPB SCH (09:16)
[2016-05-31] MEDS: Lactobacillus Acidophilus 500 MU Cap PO SCH (09:17)
[2016-05-31] MEDS: Pantoprazole 40 mg EC Tab PO SCH (09:18)
[2016-05-31 09:41] VITALS: BP 123/64; PULSE 87; TEMP 97.5; O2SAT 96
--- NOTE | 2016-05-31 12:01 | CP.PCM.PN ---
Subjective - Date & Time of Evaluation Date of Evaluation: 05/31/16 Time of Evaluation: 09:00 - Subjective Subjective: no acute complaints at present Objective - Vital Signs/Intake and Output Vital Signs (last 24 hours): Temp Pulse Resp BP Pulse Ox 97.5 F L 87 20 123/64 96 05/31/16 09:40 05/31/16 09:40 05/31/16 09:40 05/31/16 09:40 05/31/16 09:40 - Medications Medications: Current Medications Acetylcysteine (Acetylcysteine 20%) 2 ml INH RBID [facility] Last Admin: 05/31/16 07:27 Dose: 2 ml Albuterol/Ipratropium (Duoneb 3 Mg/0.5 Mg (3 Ml) Ud) 3 ml INH RQID [facility] Last Admin: 05/31/16 11:01 Dose: 3 ml Aspirin (Ecotrin) 81 mg PO DAILY [facility] Last Admin: 05/31/16 09:17 Dose: 81 mg Atorvastatin Calcium (Lipitor) 20 mg PO HS [facility] Last Admin: 05/30/16 21:07 Dose: 20 mg Docusate Sodium (Colace) 100 mg PO BID [facility] Last Admin: 05/31/16 09:17 Dose: 100 mg Enoxaparin Sodium (Lovenox) 40 mg SC DAILY@1700 [facility] PRN Reason: Protocol Last Admin: 05/30/16 17:13 Dose: 40 mg Ferrous Sulfate (Feosol) 325 mg PO BID [facility] Last Admin: 05/31/16 09:17 Dose: 325 mg Cefepime HCl 1 gm/ Sodium (Chloride) 100 mls @ 100 mls/hr IVPB Q12H [facility] Last Admin: 05/31/16 05:22 Dose: 100 mls/hr Azithromycin 500 mg/ Sodium (Chloride) 250 mls @ 250 mls/hr IVPB DAILY@0600 [facility] Last Admin: 05/31/16 06:34 Dose: 250 mls/hr Vancomycin HCl 1 gm/ Sodium (Chloride) 250 mls @ 166.667 mls/hr IVPB Q12H [facility] Last Admin: 05/31/16 01:13 Dose: 166.667 mls/hr Micafungin Sodium 100 mg/ (Sodium Chloride) 100 mls @ 100 mls/hr IVPB DAILY [facility] Last Admin: 05/31/16 09:16 Dose: 100 mls/hr Insulin Human Regular (Humulin R) 0 units SC DAILY@0630 [facility] PRN Reason: Protocol Last Admin: 05/31/16 07:37 Dose: Not Given Lactobacillus Acidophilus (Bacid Acidophilus) 1 cap PO BID [facility] Last Admin: 05/31/16 09:17 Dose: 1 cap Lactulose (Enulose) 20 gm PO DAILY PRN PRN Reason: Constipation Last Admin: 05/23/16 18:56 Dose: 20 gm Metformin HCl (Glucophage) 500 mg PO BIDWM [facility] Last Admin: 05/31/16 09:17 Dose: 500 mg Pantoprazole Sodium (Protonix Ec Tab) 40 mg PO DAILY [facility] Last Admin: 05/31/16 09:18 Dose: 40 mg Temazepam (Restoril) 15 mg PO HS PRN PRN Reason: Insomnia Last Admin: 05/30/16 22:12 Dose: 15 mg - Labs Labs: 05/28/16 11:30 05/28/16 05:30 PT 11.0 SECONDS (9.6-11.2) 05/18/16 08:04 INR 1.06 (0.92-1.08) 05/18/16 08:04 APTT 25.0 SECONDS (23.3-32.5) 05/18/16 08:04 - Head Exam Head Exam: ATRAUMATIC, NORMAL INSPECTION, NORMOCEPHALIC - Eye Exam Eye Exam: EOMI, Normal appearance, PERRL Pupil Exam: NORMAL ACCOMODATION - ENT Exam ENT Exam: Mucous Membranes Moist, Normal Exam - Respiratory Exam Respiratory Exam: NORMAL BREATHING PATTERN - Cardiovascular Exam Cardiovascular Exam: REGULAR RHYTHM - GI/Abdominal Exam GI & Abdominal Exam: Normal Bowel Sounds - Rectal Exam Rectal Exam: NORMAL INSPECTION - Exam External exam: NORMAL EXTERNAL EXAM - Extremities Exam Extremities Exam: Normal Capillary Refill - Back Exam Back Exam: NORMAL INSPECTION - Neurological Exam Neurological Exam: Alert, Awake Neuro motor strength exam: Left Upper Extremity: 3, Right Upper Extremity: 3, Left Lower Extremity: 3, Right Lower Extremity: 3 - Psychiatric Exam Psychiatric exam: Normal Affect, Normal Mood - Skin Skin Exam: Normal Color Assessment and Plan (1) Pulmonary cavitary lesion Status: Acute (2) Stroke Assessment & Plan: pt, ot , rec , speech therapy for subacute rehab at [facility] Status: Acute (3) Hepatitis C Status: Acute
--- NOTE | 2016-05-31 12:15 | CP.PCM.DIS ---
Provider - Provider Date of Admission: 05/17/16 23:09 Attending physician: Emanuel Holloway Primary care physician: Bre Long MD Consults: Dr Joleen Barkley Time Spent in preparation of Discharge (in minutes): 35 Hospital Course - Lab Results Lab Results: Micro Results 05/26/16 08:55 Blood-Venous Blood Culture - Preliminary NO GROWTH AFTER 4 DAYS 05/26/16 09:00 Blood-Venous Blood Culture - Preliminary NO GROWTH AFTER 4 DAYS 05/20/16 17:00 Sputum Induced Gram Stain - Final 05/20/16 17:00 Sputum Induced Sputum Culture - Final NORMAL ORAL SRAVANI 05/19/16 18:13 Sputum Gram Stain - Final 05/19/16 18:13 Sputum Sputum Culture - Final Most Recent Lab Values WBC 4.2 K/uL (4.8-10.8) L 05/28/16 11:30 RBC 3.05 Mil/uL (4.40-5.90) L 05/28/16 11:30 Hgb 9.3 g/dL (12.0-18.0) L 05/28/16 11:30 Hct 28.2 % (35.0-51.0) L 05/28/16 11:30 MCV 92.5 fl (80.0-94.0) 05/28/16 11:30 MCH 30.5 pg (27.0-31.0) 05/28/16 11:30 MCHC 32.9 g/dL (33.0-37.0) L 05/28/16 11:30 RDW 15.0 % (11.5-14.5) H 05/28/16 11:30 Plt Count 192 K/uL (130-400) 05/28/16 11:30 MPV 8.4 fl (7.2-11.7) 05/19/16 07:27 Neut % (Auto) 79.9 % (50.0-75.0) H 05/19/16 07:27 Lymph % (Auto) 15.7 % (20.0-40.0) L 05/19/16 07:27 Lawrence % (Auto) 3.2 % (0.0-10.0) 05/19/16 07:27 Eos % (Auto) 1.0 % (0.0-4.0) 05/19/16 07:27 Baso % (Auto) 0.2 % (0.0-2.0) 05/19/16 07:27 Neut # 3.3 K/uL (1.8-7.0) 05/19/16 07:27 Lymph # 0.7 K/uL (1.0-4.3) L 05/19/16 07:27 Lawrence # 0.1 K/uL (0.0-0.8) 05/19/16 07:27 Eos # 0.0 K/uL (0.0-0.7) 05/19/16 07:27 Baso # 0.0 K/uL (0.0-0.2) 05/19/16 07:27 Retic Count 2.8 % (0.5-1.5) H 05/22/16 17:58 PT 11.0 SECONDS (9.6-11.2) 05/18/16 08:04 INR 1.06 (0.92-1.08) 05/18/16 08:04 APTT 25.0 SECONDS (23.3-32.5) 05/18/16 08:04 Sodium 145 mmol/l (132-148) 05/28/16 05:30 Potassium 3.4 MMOL/L (3.6-5.0) L 05/28/16 05:30 Chloride 98 mmol/L (98-107) 05/28/16 05:30 Carbon Dioxide 39 mmol/L (22-30) H 05/28/16 05:30 Anion Gap 11 (10-20) 05/28/16 05:30 BUN 6 mg/dl (9-20) L 05/28/16 05:30 Creatinine 0.4 mg/dL (0.8-1.5) L 05/28/16 05:30 Est GFR ( Amer) > 60 05/28/16 05:30 Est GFR (Non-Af Amer) > 60 05/28/16 05:30 POC Glucose (mg/dL) 86 mg/dL (65-110) 05/31/16 05:32 Random Glucose 93 mg/dL (75-110) 05/28/16 05:30 Calcium 7.7 mg/dL (8.4-10.2) L 05/28/16 05:30 Magnesium 1.5 MG/DL (1.6-2.3) L 05/28/16 05:30 Iron 57 ug/dL (49-181) 05/22/16 17:58 TIBC 202 ug/dL (250-450) L 05/22/16 17:58 % Saturation 28 % (20-55) 05/22/16 17:58 Transferrin 156.26 mg/dL (206-381) L 05/22/16 17:58 Ferritin 3080.0 ng/mL 05/22/16 15:25 Total Bilirubin 0.6 mg/dl (0.2-1.3) 05/18/16 08:04 AST 32 U/L (17-59) 05/18/16 08:04 ALT 49 U/L (21-72) 05/18/16 08:04 Alkaline Phosphatase 85 U/L (38-126) 05/18/16 08:04 Total Protein 5.4 G/DL (6.3-8.2) L 05/18/16 08:04 Albumin 2.6 g/dL (3.5-5.0) L 05/18/16 08:04 Globulin 2.8 gm/dL (2.2-3.9) 05/18/16 08:04 Albumin/Globulin Ratio 0.9 (1.0-2.1) L 05/18/16 08:04 Vitamin B12 327 pg/mL (239-931) 05/22/16 15:25 Folate 9.1 ng/mL 05/22/16 15:25 Stool Occult Blood Negative (NEGATIVE) 05/23/16 10:31 Vancomycin Trough 10.3 ug/mL (5.0-10.0) H 05/27/16 01:45 TB Test (QFT) Nil 0.38 IU/mL (()) 05/19/16 09:30 TB Test Mitogen - Nil 0.14 IU/mL (()) 05/19/16 09:30 TB Test TB - Nil <0.00 IU/mL (()) 05/19/16 09:30 TB Test (QFT) Indeterminate (Negative) H 05/19/16 09:30 - Hospital Course Hospital Course: 70 yo male with history of DM2 and Hepatitis C was admitted at [facility] because of Left Subacute CVA and bilateral lower lobe cavitary lesions. The nature of the lung lesions were not determined but bacterial or fungal infection were entertained. The patient was put on IV antibiotics and anti- fungal while at the same time managing his stroke. ID was consulted but before arriving at a diagnosis patient was transferred to acute rehab for physical therapy. Another ID was consulted in [facility] who recommended a repeat CT of the chest after 3 weeks of IV antibiotics. There was no resolution or even change in the cavitary lesion. Since patient treatment in acute rehab has finished its course, patient has to continue his therapy in subacute rehab. ID suggested continuation of IV antibiotics for another 2 weeks. I spoke with Dr Bess, the primary attending, in [place] and suggested that patient needed IR biopsy since the antibiotics and antifungal did not alter the lesion. She agreed and suggested that patient could have IR biopsy at [facility] with Dr Patel Larson as an outpatient and she would follow the result. 1. Left sided Subacute CVA did well with PT/OT continue statin and ASA 2. Bibasal Cavitary Lesions repeat CT scan showed persistent bilateral lower lobe mass lesions pt had about 3 weeks of IV Cefepime and Zithromycin continue Vancomycin, Cefepime and Zithromax and Micafungin per recommendation by ID for another 2 weeks ECHO negative for vegetations pt will get IR biopsy as outpatient at [facility] while at Subacute Rehab and will be followed up by Dr Bess 3. DM II BS coontrolled continue Metformin 500mg PO BID 4. Hepatitis C Follow up with PCP as outpatient 5. Anemia/ thrombocytopenia Most likely anemia of chronic disease and ITP 6. DVT prophylaxis Lovenox 40mg SC daily Discharge Exam - Head Exam Head Exam: ATRAUMATIC, NORMAL INSPECTION, NORMOCEPHALIC - Eye Exam Eye Exam: absent: Scleral icterus - ENT Exam ENT Exam: Mucous Membranes Moist - Respiratory Exam Respiratory Exam: absent: Wheezes, Respiratory Distress - Cardiovascular Exam Cardiovascular Exam: REGULAR RHYTHM, +S1, +S2 - GI/Abdominal Exam GI & Abdominal Exam: Soft. absent: Tenderness - Rectal Exam Rectal Exam: Deferred - Neurological Exam Neurological exam: Alert, Oriented x3 - Psychiatric Exam Psychiatric exam: Normal Affect - Skin Skin Exam: Dry, Intact Discharge Plan - Follow Up Plan Condition: GOOD Disposition: REHAB FACILITY/REHAB UNIT
--- NOTE | 2016-05-31 14:26 | CP.PCM.PN ---
Subjective - Date & Time of Evaluation Date of Evaluation: 05/31/16 Time of Evaluation: 18:00 - Subjective Subjective: no acute complaints at present Objective - Vital Signs/Intake and Output Vital Signs (last 24 hours): Temp Pulse Resp BP Pulse Ox 97.5 F L 87 20 123/64 96 05/31/16 09:40 05/31/16 09:40 05/31/16 09:40 05/31/16 09:40 05/31/16 09:40 - Medications Medications: Current Medications Acetylcysteine (Acetylcysteine 20%) 2 ml INH RBID [facility] Last Admin: 05/31/16 07:27 Dose: 2 ml Albuterol/Ipratropium (Duoneb 3 Mg/0.5 Mg (3 Ml) Ud) 3 ml INH RQID [facility] Last Admin: 05/31/16 11:01 Dose: 3 ml Aspirin (Ecotrin) 81 mg PO DAILY [facility] Last Admin: 05/31/16 09:17 Dose: 81 mg Atorvastatin Calcium (Lipitor) 20 mg PO HS [facility] Last Admin: 05/30/16 21:07 Dose: 20 mg Docusate Sodium (Colace) 100 mg PO BID [facility] Last Admin: 05/31/16 09:17 Dose: 100 mg Enoxaparin Sodium (Lovenox) 40 mg SC DAILY@1700 [facility] PRN Reason: Protocol Last Admin: 05/30/16 17:13 Dose: 40 mg Ferrous Sulfate (Feosol) 325 mg PO BID [facility] Last Admin: 05/31/16 09:17 Dose: 325 mg Vancomycin HCl 1 gm/ Sodium (Chloride) 250 mls @ 166.667 mls/hr IVPB Q12H [facility] Last Admin: 05/31/16 01:13 Dose: 166.667 mls/hr Micafungin Sodium 100 mg/ (Sodium Chloride) 100 mls @ 100 mls/hr IVPB DAILY [facility] Last Admin: 05/31/16 09:16 Dose: 100 mls/hr Insulin Human Regular (Humulin R) 0 units SC DAILY@0630 [facility] PRN Reason: Protocol Last Admin: 05/31/16 07:37 Dose: Not Given Lactobacillus Acidophilus (Bacid Acidophilus) 1 cap PO BID [facility] Last Admin: 05/31/16 09:17 Dose: 1 cap Lactulose (Enulose) 20 gm PO DAILY [facility] PRN Reason: Constipation Last Admin: 05/23/16 18:56 Dose: 20 gm Metformin HCl (Glucophage) 500 mg PO BIDWM [facility] Last Admin: 05/31/16 09:17 Dose: 500 mg Pantoprazole Sodium (Protonix Ec Tab) 40 mg PO DAILY [facility] Last Admin: 05/31/16 09:18 Dose: 40 mg Temazepam (Restoril) 15 mg PO HS PRN PRN Reason: Insomnia Last Admin: 05/30/16 22:12 Dose: 15 mg - Labs Labs: 05/28/16 11:30 05/28/16 05:30 PT 11.0 SECONDS (9.6-11.2) 05/18/16 08:04 INR 1.06 (0.92-1.08) 05/18/16 08:04 APTT 25.0 SECONDS (23.3-32.5) 05/18/16 08:04 - Head Exam Head Exam: ATRAUMATIC, NORMAL INSPECTION, NORMOCEPHALIC - Eye Exam Eye Exam: EOMI, Normal appearance, PERRL Pupil Exam: NORMAL ACCOMODATION - ENT Exam ENT Exam: Mucous Membranes Moist, Normal Exam - Neck Exam Neck Exam: Full ROM, Normal Inspection - Respiratory Exam Respiratory Exam: NORMAL BREATHING PATTERN - Cardiovascular Exam Cardiovascular Exam: REGULAR RHYTHM - GI/Abdominal Exam GI & Abdominal Exam: Normal Bowel Sounds - Rectal Exam Rectal Exam: NORMAL INSPECTION - Exam External exam: NORMAL EXTERNAL EXAM - Extremities Exam Extremities Exam: Normal Capillary Refill, Normal Inspection - Back Exam Back Exam: NORMAL INSPECTION - Neurological Exam Neurological Exam: Alert, Awake Neuro motor strength exam: Left Upper Extremity: 3, Right Upper Extremity: 3, Left Lower Extremity: 3, Right Lower Extremity: 3 - Psychiatric Exam Psychiatric exam: Normal Affect, Normal Mood - Skin Skin Exam: Dry, Intact, Normal Color Assessment and Plan (1) Pulmonary cavitary lesion Status: Acute (2) Stroke Assessment & Plan: physical, occupational, recreational therapy rom strenghtening transfers and gait training Status: Acute (3) Hepatitis C Status: Acute
== END 2016-05-31 13:45 | DRG 57 ==
PROVIDERS: ADMIT Internal Medicine; ATTEND Internal Medicine
PROC: F07Z9FZ Gait Training/Functional Ambulation Treatment using Assistive, Adaptive, Supportive or Protective Equipment (ICD-10-PCS; principal; 2016-05-17)
PROC: F07L6ZZ Therapeutic Exercise Treatment of Musculoskeletal System - Lower Back / Lower Extremity (ICD-10-PCS; 2016-05-17)
PROC: F08Z4ZZ Home Management Treatment (ICD-10-PCS; 2016-05-17)
DX: I69.354 Hemiplegia and hemiparesis following cerebral infarction affecting left non-dominant side (principal); L89.152 Pressure ulcer of sacral region, stage 2; D69.3 Immune thrombocytopenic purpura; E11.9 Type 2 diabetes mellitus without complications; D63.8 Anemia in other chronic diseases classified elsewhere; B18.2 Chronic viral hepatitis C; E87.6 Hypokalemia; E66.9 Obesity, unspecified; Z68.36 Body mass index [BMI] 36.0-36.9, adult; Z87.891 Personal history of nicotine dependence; R91.8 Other nonspecific abnormal finding of lung field; I69.319 Unspecified symptoms and signs involving cognitive functions following cerebral infarction